=== PATIENT | female | born 1965 | race Caucasian/White ===

== ENCOUNTER 2022-07-29 16:12 | Observation (INO) | payer BC ==
--- OUTSIDE RECORDS SUMMARY | 2022-07-29 16:34 | XMS REPORT | Continuity of Care Document ---
:1965 Author Organization [facility] t Address [address] [place] [address] [address] [place] [address] Care Team Providers Name Role Phone Brandon Ferguson MD Primary Care Physician [phone] MARIANO HANSEN Attending Clinician Unavailable Brandon Ferguson MD Attending Clinician Nesha Osorio Attending Clinician NESHA ESTEBAN Attending Clinician Unavailable Doctor Unassigned, Archer Attending Clinician Unavailable MORAIMA FOY Attending Clinician Unavailable Moraima Foy NP Attending Clinician GALINA RICH Attending Clinician Unavailable Lab, Ang - Db Attending Clinician Unavailable BRANDON FERGUSON Attending Clinician Unavailable Galina Byrd Attending Clinician Tonja Gross MD Attending Clinician TONJA GROSS Attending Clinician Unavailable LINDSEY DOMINGUEZ Attending Clinician Unavailable Unknown, Attending Attending Clinician Unavailable Mariano Hansen MD Attending Clinician COSTA OTT Attending Clinician Unavailable Only, Ang Db Test Attending Clinician Unavailable Dutch BOWENP, Costa Attending Clinician JUSTO ESPARZA Attending Clinician Unavailable Andrei PINTO, Justo Attending Clinician Mitra PHOTOGRAPH MOUNTER, Miguelina Attending Clinician Kwame Rdz MD Attending Clinician KWAME RDZ Attending Clinician Unavailable Leslie Perales PA-C Attending Clinician Pedro PHOTOGRAPH MOUNTER, Ghada Attending Clinician BA ARTIS Attending Clinician Unavailable Lab, Adc Fam Pob I Attending Clinician Unavailable Brandon Chowdhury MD Attending Clinician Jono Sheriff Attending Clinician MORAIMA FOY Admitting Clinician Unavailable MARIANO HANSEN Admitting Clinician Unavailable Payers Payer Name Policy Type Policy Number Effective Date Expiration Date Ebonie jones [facility] [employer] [id number] 2016 00:00:00 [facility] Problems Condition Condition Condition Status Onset Resolution Last Treating Co mments Source Name Details Category Date Date Treatment Clinician Date Colorectal Colorectal Disease Active U bob cancer, cancer, 5-05 ity of stage I stage I 00:00: [place] [facility] Tubulovill Tubulovill Disease Active U bob ous ous 2-21 ity of adenoma [place] large large 00 Medical intestine intestine Bran ch Cervical Cervical Disease Active Unive rs radiculopa radiculopa 2-21 it y of thy thy 00:00: [place] [facility] Branch Gluteal Gluteal Disease Active Univers pain pain 2-21 ity of 00:00: [place] [facility] Colon Colon Disease Active Univers cancer cancer 2-06 ity of 00:00: [place] [facility] Branch Nonobstruc Nonobstruc Disease Active 2021-03 U bob tive tive 0-03 ity of atheroscle atheroscle 00:[place] rosis of rosis of 00 Medica l coronary coronary Branch artery artery Nonrheumat Nonrheumat Disease Active 2021-03 U nivers ic aortic ic aortic 0-03 ity of valve valve 00:00: [place] insufficie insufficie 00 Me dical ncy ncy Branch Family Family Disease Active 2017-03 Univers history of history of 0-09 [place] y of early CAD early CAD [place] Chest pain Chest pain Disease Active 2017-03 U nivers 0-08 ity of 00:00: [place] [facility] Obesity Obesity Disease Active 2017-03 Univers (BMI (BMI 0-08 ity of 30-39.9) 30-39.9) 00:00: [place] [facility] Gastroesop Gastroesop Disease Active U nivers hageal hageal 6-07 ity of reflux reflux 00:00: [place] disease disease 00 Medical without without Branch esophagiti esophagiti s s Left ankle Left ankle Disease Active U nivers pain pain 1-29 ity of 00:00: [place] [facility] Essential Essential Disease Active Uni vers hypertensi hypertensi 1-27 it y of on on 00:00: Medical Branch Depression Depression Disease Active U nivers 1-15 ity of 00:00: Medical Branch Allergies, Adverse Reactions, Alerts Allergy Allergy Status Severity Reaction(s) Onset Inactive Treating Comm ents Source Name Type Date Date Clinician Indometh Propensi Active Method i acin ty to 7-02 st adverse 00:00: [facility] reaction 00 l s to drug Indometh Propensi Active Rash Univer s acin ty to 1-15 ity of Sodium adverse 00:00: [place] reaction 00 Medical s Branch INDOMETH DRUG Active Rash Univers ACIN INGREDI 1-15 ity of SODIUM 00:00: [place] [address] [facility] Branch Social History Social Habit Start Date Stop Date Quantity Comments Source Gender identity [facility] Sexual orientation [facility] Exposure to 2022-07-11 2022-07-21 Not sure [facility] SARS-CoV-2 (event) 00:00:00 10:54:00 [facility] Alcohol intake 2022-07-21 2022-07-21 .29 /d University of 00:00:00 00:00:00 [facility] Tobacco use and 2021-12-01 2021-12-01 Smokeless Universit y of exposure 00:00:00 00:00:00 tobacco non-user [facility] History of Social 2018-11-05 2018-11-[address] function 00:00:00 00:00:00 [facility] Sex Assigned At [birth year] [facility] Smoking Status Start Date Stop Date Source Never smoked tobacco [facility] Medications Ordered Filled Start Stop Current Ordering Indication Dosage Frequency Signature Comments Components Source Medication Medication Date Date Medication? Clinician (SIG) Name Name diltiazem Yes [id number] 180mg Take 1 U nivers 180 mg 24 5-10 capsule by ity of hr capsule 00:00: mouth in [facility] the Medical morning Branch and 1 capsule in the evening. ATORVASTATI Yes [id number] 80mg TAKE 1 Univers N 80 mg 3-09 TABLET BY ity of tablet 00:00: MOUTH AT [address] ATORVASTATI Yes [id number] 80mg TAKE 1 Univers N 80 mg 3-09 TABLET BY ity of tablet 00:00: MOUTH AT [address] ATORVASTATI Yes [id number] 80mg TAKE 1 Univers N 80 mg 3-09 TABLET BY ity of tablet 00:00: MOUTH AT [address] ATORVASTATI Yes [id number] 80mg TAKE 1 Univers N 80 mg 3-09 TABLET BY ity of tablet 00:00: MOUTH AT [address] ATORVASTATI Yes [id number] 80mg TAKE 1 Univers N 80 mg 3-09 TABLET BY ity of tablet 00:00: MOUTH AT [address] HYDROcodone 2022- No 1{tbl} 1 tablet, Univers -acetaminop 05-12 Oral, ity of hen (NORCO) 05:00: 05:34 [place]CE[place] 1 [place] 10-325 [place] 00 :00 dose, On Medica l tablet 1 [facility] Branch tablet 05/11/22 at 2300, Routine dexamethaso 2022- No 10mg 10 mg, Uni vers ne 05-12 Intramuscu ity of (DECADRON 05:00: 05:00 lar, ONCE, [place] PHOSPHATE) 00 :00 1 dose, On Med ical injection Emi Branch 10 mg 05/11/22 at 2300, Routine ketorolac 2022-0 2022- No 30mg 30 mg, Unive rs (TORADOL) 05-12 Slow IV ity of injection 05:00: 05:33 Push, [place] 30 mg 00 :00 ONCE, 1 Medical dose, On Branch Emi 05/11/22 at 2300, Routine diazePAM 2022-0 2022- No 5mg 5 mg, Univers (VALIUM) 05-12 Oral, ity of tablet 5 mg 04:00: 05:34 ONCE, 1 [place] 00 :[place] dose, On Medical Emi Branch 05/11/22 at 2200, SUNIL ketorolac 3-0 Yes [id number] 10mg Take 1 Un mehrdad 10 mg 2-24 tablet by ity of tablet 00:00: mouth [place] 00 every 6 Medical (six) Branch hours as needed for Pain (scale 4-6) or Pain (scale 1-3). gabapentin 2023-0 Yes [id number] 300mg Take 1 Univers 300 mg 2-24 capsule by ity of capsule 00:00: mouth 3 00 (three) Medical times Branch daily as needed for Pain (scale 4-6) or Pain (scale 7-10). ketorolac 2023-0 Yes [id number] 10mg Take 1 Un mehrdad 10 mg 2-24 tablet by ity of tablet 00:00: mouth [place] 00 every 6 Medical (six) Branch hours as needed for Pain (scale 4-6) or Pain (scale 1-3). gabapentin 2023-0 Yes [id number] 300mg Take 1 Univers 300 mg 2-24 capsule by ity of capsule 00:00: mouth 3 [place] 00 (three) Medical times Branch daily as needed for Pain (scale 4-6) or Pain (scale 7-10). ketorolac 2023-0 Yes [id number] 10mg Take 1 Un mehrdad 10 mg 2-24 tablet by ity of tablet 00:00: mouth [place] 00 every 6 Medical (six) Branch hours as needed for Pain (scale 4-6) or Pain (scale 1-3). gabapentin 2023-0 Yes [id number] 300mg Take 1 Univers 300 mg 2-24 capsule by ity of capsule 00:00: mouth 3 [place] 00 (three) Medical times Branch daily as needed for Pain (scale 4-6) or Pain (scale 7-10). ketorolac 2023-0 Yes [id number] 10mg Take 1 Un mehrdad 10 mg 2-24 tablet by ity of tablet 00:00: mouth [place] 00 every 6 Medical (six) Branch hours as needed for Pain (scale 4-6) or Pain (scale 1-3). gabapentin 2022-0 Yes [id number] 300mg Take 1 Univers 300 mg 2-24 capsule by ity of capsule 00:00: mouth 3 [place] 00 (three) Medical times Branch daily as needed for Pain (scale 4-6) or Pain (scale 7-10). ketorolac 2023-0 Yes [id number] 10mg Take 1 Un mehrdad 10 mg 2-24 tablet by ity of tablet 00:00: mouth [place] 00 every 6 Medical (six) Branch hours as needed for Pain (scale 4-6) or Pain (scale 1-3). gabapentin 3-0 Yes [id number] 300mg Take 1 Univers 300 mg 2-24 capsule by ity of capsule 00:00: mouth 3 [place] 00 (three) Medical times Branch daily as needed for Pain (scale 4-6) or Pain (scale 7-10). ketorolac 2023-0 Yes [id number] 10mg Take 1 Un mehrdad 10 mg 2-24 tablet by ity of tablet 00:00: mouth [place] 00 every 6 Medical (six) Branch hours as needed for Pain (scale 4-6) or Pain (scale 1-3). gabapentin 2023-0 Yes [id number] 300mg Take 1 Univers 300 mg 2-24 capsule by ity of capsule 00:00: mouth 3 [place] 00 (three) Medical times Branch daily as needed for Pain (scale 4-6) or Pain (scale 7-10). ketorolac 2023-0 Yes [id number] 10mg Take 1 Un mehrdad 10 mg 2-24 tablet by ity of tablet 00:00: mouth [place] 00 every 6 Medical (six) Branch hours as needed for Pain (scale 4-6) or Pain (scale 1-3). gabapentin 2023-0 Yes [id number] 300mg Take 1 Univers 300 mg 2-24 capsule by ity of capsule 00:00: mouth 3 (three) Medical times Branch daily as needed for Pain (scale 4-6) or Pain (scale 7-10). ketorolac 2022-0 Yes [id number] 10mg Take 1 Un mehrdad 10 mg 2-24 tablet by ity of tablet 00:00: mouth 00 every 6 Medical (six) Branch hours as needed for Pain (scale 4-6) or Pain (scale 1-3). gabapentin 2022-0 Yes [id number] 300mg Take 1 Univers 300 mg 2-24 capsule by ity of capsule 00:00: mouth (three) Medical times Branch daily as needed for Pain (scale 4-6) or Pain (scale 7-10). ketorolac 2022-0 Yes [id number] 10mg Take 1 Un mehrdad 10 mg 2-24 tablet by ity of tablet 00:00: mouth 00 every 6 Medical (six) Branch hours as needed for Pain (scale 4-6) or Pain (scale 1-3). gabapentin 2022-0 Yes [id number] 300mg Take 1 Univers 300 mg 2-24 capsule by ity of capsule 00:00: mouth (three) Medical times Branch daily as needed for Pain (scale 4-6) or Pain (scale 7-10). ketorolac 2022-0 Yes [id number] 10mg Take 1 Un mehrdad 10 mg 2-24 tablet by ity of tablet 00:00: mouth 00 every 6 Medical (six) Branch hours as needed for Pain (scale 4-6) or Pain (scale 1-3). gabapentin 2022-0 Yes [id number] 300mg Take 1 Univers 300 mg 2-24 capsule by ity of capsule 00:00: mouth (three) Medical times Branch daily as needed for Pain (scale 4-6) or Pain (scale 7-10). tiZANidine 2022-0 Yes [id number] 2mg Take 1 U nivers 2 mg 2-22 capsule by ity of capsule 00:00: mouth 3 (three) Medical times Branch daily as needed (neck pain). methylPREDN 202-0 Yes [id number] Take by Univers ISolone 2-22 mouth ity of (MEDROL, 00:00: SEE-INSTRU Jamie as LETY,) 4 mg 00 CTIONS. Medica l tablets follow Branch package directions tiZANidine 2023-0 Yes [id number] 2mg Take 1 U nivers 2 mg 2-22 capsule by ity of capsule 00:00: mouth 3 [place] 00 (three) Medical times Branch daily as needed (neck pain). methylPREDN 2023-0 Yes [id number] Take by Univers ISolone 2-22 mouth ity of (MEDROL, 00:00: SEE-INSTRU [place] as LETY,) 4 mg 00 CTIONS. Medica l tablets follow Branch package directions tiZANidine 2023-0 Yes [id number] 2mg Take 1 U nivers 2 mg 2-22 capsule by ity of capsule 00:00: mouth 3 (three) Medical times Branch daily as needed (neck pain). methylPREDN 2023-0 Yes [id number] Take by Univers ISolone 2-22 mouth ity of (MEDROL, 00:00: SEE-INSTRU [place] as LETY,) 4 mg 00 CTIONS. Medica l tablets follow Branch package directions tiZANidine 2023-0 Yes [id number] 2mg Take 1 U nivers 2 mg 2-22 capsule by ity of capsule 00:00: mouth 3 (three) Medical times Branch daily as needed (neck pain). methylPREDN 2023-0 Yes [id number] Take by Univers ISolone 2-22 mouth ity of (MEDROL, 00:00: SEE-INSTRU [place] LETY,) 4 mg 00 CTIONS. Medica l tablets follow Branch package directions tiZANidine 2023-0 Yes [id number] 2mg Take 1 U nivers 2 mg 2-22 capsule by ity of capsule 00:00: mouth 3 [place] (three) Medical times Branch daily as needed (neck pain). methylPREDN 2023-0 Yes [id number] Take by Univers ISolone 2-22 mouth ity of (MEDROL, 00:00: SEE-INSTRU [place] as LETY,) 4 mg 00 CTIONS. Medica l tablets follow Branch package directions tiZANidine 2023-0 Yes [id number] 2mg Take 1 U nivers 2 mg 2-22 capsule by ity of capsule 00:00: mouth 3 (three) Medical times Branch daily as needed (neck pain). methylPREDN 2023-0 Yes [id number] Take by Univers ISolone 2-22 mouth ity of (MEDROL, 00:00: SEE-INSTRU [place] as LETY,) 4 mg 00 CTIONS. Medica l tablets follow Branch package directions tiZANidine 2023-0 Yes [id number] 2mg Take 1 U nivers 2 mg 2-22 capsule by ity of capsule 00:00: mouth 3 [place] (three) Medical times Branch daily as needed (neck pain). methylPREDN 2023-0 Yes [id number] Take by Univers ISolone 2-22 mouth ity of (MEDROL, 00:00: SEE-INSTRU [place] as LETY,) 4 mg 00 CTIONS. Medica l tablets follow Branch package directions tiZANidine 2023-0 Yes [id number] 2mg Take 1 U nivers 2 mg 2-22 capsule by ity of capsule 00:00: mouth 3 (three) Medical times Branch daily as needed (neck pain). methylPREDN 2023-0 Yes [id number] Take by Univers ISolone 2-22 mouth ity of (MEDROL, 00:00: SEE-INSTRU [place] as LETY,) 4 mg 00 CTIONS. Medica l tablets follow Branch package directions tiZANidine 2023-0 Yes [id number] 2mg Take 1 U nivers 2 mg 2-22 capsule by ity of capsule 00:00: mouth 3 (three) Medical times Branch daily as needed (neck pain). methylPREDN 2023-0 Yes [id number] Take by Univers ISolone 2-22 mouth ity of (MEDROL, 00:00: SEE-INSTRU [place] as LETY,) 4 mg 00 CTIONS. Medica l tablets follow Branch package directions tiZANidine 2023-0 Yes [id number] 2mg Take 1 U nivers 2 mg 2-22 capsule by ity of capsule 00:00: mouth 3 (three) Medical times Branch daily as needed (neck pain). methylPREDN 2023-0 Yes [id number] Take by Univers ISolone 2-22 mouth ity of (MEDROL, 00:00: SEE-INSTRU [place] as LETY,) 4 mg 00 CTIONS. Medica l tablets follow Branch package directions tiZANidine 2023-0 Yes [id number] 2mg Take 1 U nivers 2 mg 2-22 capsule by ity of capsule 00:00: mouth 3 (three) Medical times Branch daily as needed (neck pain). methylPREDN 2023-0 Yes [id number] Take by Univers ISolone 2-22 mouth ity of (MEDROL, 00:00: SEE-INSTRU [place] as LETY,) 4 mg 00 CTIONS. Medica l tablets follow Branch package directions tiZANidine 2023-0 Yes [id number] 2mg Take 1 U nivers 2 mg 2-22 capsule by ity of capsule 00:00: mouth 3 (three) Medical times Branch daily as needed (neck pain). methylPREDN 2023-0 Yes [id number] Take by Univers ISolone 2-22 mouth ity of (MEDROL, 00:00: SEE-INSTRU [place] as LETY,) 4 mg 00 CTIONS. Medica l tablets follow Branch package directions tiZANidine 2023-0 Yes [id number] 2mg Take 1 U nivers 2 mg 2-22 capsule by ity of capsule 00:00: mouth 3 (three) Medical times Branch daily as needed (neck pain). methylPREDN 2023-0 Yes [id number] Take by Univers ISolone 2-22 mouth ity of (MEDROL, 00:00: SEE-INSTRU [place] as LETY,) 4 mg 00 CTIONS. Medica l tablets follow Branch package directions tiZANidine 2023-0 Yes [id number] 2mg Take 1 U nivers 2 mg 2-22 capsule by ity of capsule 00:00: mouth 3 (three) Medical times Branch daily as needed (neck pain). methylPREDN 2023-0 Yes [id number] Take by Univers ISolone 2-22 mouth ity of (MEDROL, 00:00: SEE-INSTRU [place] LETY,) 4 mg 00 CTIONS. Medica l tablets follow Branch package directions tiZANidine 2023-0 Yes [id number] 2mg Take 1 U nivers 2 mg 2-22 capsule by ity of capsule 00:00: mouth 3 (three) Medical times Branch daily as needed (neck pain). methylPREDN 2023-0 Yes [id number] Take by Univers ISolone 2-22 mouth ity of (MEDROL, 00:00: SEE-INSTRU [place] LETY,) 4 mg 00 CTIONS. Medica l tablets follow Branch package directions tiZANidine 3-0 Yes [id number] 2mg Take 1 U nivers 2 mg 2-21 capsule by ity of capsule 00:00: mouth 3 [place] 00 (three) Medical times Branch daily as needed (neck pain). tiZANidine 3-0 Yes [id number] 2mg Take 1 U nivers 2 mg 2-21 capsule by ity of capsule 00:00: mouth 3 [place] 00 (three) Medical times Branch daily as needed (neck pain). tiZANidine 3-0 2023- No [id number] 2mg Take 1 Univers 2 mg 2-21 02-22 capsule by ity of capsule 00:00: 00:00 mouth 3 [place] 00 :00 (three) Medical times Branch daily as needed (neck pain). tiZANidine 3-0 2023- No [id number] 2mg Take 1 Univers 2 mg 2-21 02-22 capsule by ity of capsule 00:00: 00:00 mouth 3 [place] 00 :00 (three) Medical times Branch daily as needed (neck pain). famotidine 3-0 Yes 20mg Take 20 mg U nivers 20 mg 2-20 by mouth ity of tablet 00:00: at [place] [address] bedtime. Medical Branch famotidine 2023-0 Yes 20mg Take 20 mg U nivers 20 mg 2-20 by mouth ity of tablet 00:00: at [place] [address] bedtime. Medical Branch famotidine 2023-0 Yes 20mg Take 20 mg U nivers 20 mg 2-20 by mouth ity of tablet 00:00: at [place] [address] bedtime. Medical Branch famotidine 2023-0 Yes 20mg Take 20 mg U nivers 20 mg 2-20 by mouth ity of tablet 00:00: at [place] [address] bedtime. Medical Branch famotidine 2023-0 Yes 20mg Take 1 Unive rs 20 mg 2-20 tablet by ity of tablet 00:00: mouth at [place] [address] bedtime. Medical Branch famotidine 2023-0 Yes 20mg Take 1 Unive rs 20 mg 2-20 tablet by ity of tablet 00:00: mouth at [place] [address] bedtime. Medical Branch famotidine 2023-0 Yes 20mg Take 1 Unive rs 20 mg 2-20 tablet by ity of tablet 00:00: mouth at [place] 00 bedtime. Medical Branch famotidine 0 Yes 20mg Take 1 Unive rs 20 mg 2-20 tablet by ity of tablet 00:00: mouth at [place] [address] bedtime. Medical Branch atorvastati 0 Yes [id number] 80mg Take 1 Univers n 80 mg 1-06 tablet by ity of tablet 00:00: mouth at [place] [address] bedtime. Medical Branch atorvastati 0 Yes [id number] 80mg Take 1 Univers n 80 mg 1-06 tablet by ity of tablet 00:00: mouth at [place] bedtime. Medical Branch atorvastati 0 Yes [id number] 80mg Take 1 Univers n 80 mg 1-06 tablet by ity of tablet 00:00: mouth at [place] bedtime. Medical Branch atorvastati Yes [id number] 80mg Take 1 Univers n 80 mg 1-06 tablet by ity of tablet 00:00: mouth at [place] [address] bedtime. Medical Branch atorvastati 0 Yes [id number] 80mg Take 1 Univers n 80 mg 1-06 tablet by ity of tablet 00:00: mouth at [place] [address] bedtime. Medical Branch atorvastati Yes [id number] 80mg Take 1 Univers n 80 mg 1-06 tablet by ity of tablet 00:00: mouth at [place] [address] bedtime. Medical Branch atorvastati Yes [id number] 80mg Take 1 Univers n 80 mg 1-06 tablet by ity of tablet 00:00: mouth at [place] [address] bedtime. Medical Branch atorvastati 0 Yes [id number] 80mg Take 1 Univers n 80 mg 1-06 tablet by ity of tablet 00:00: mouth at [place] [address] bedtime. Medical Branch atorvastati 0 Yes [id number] 80mg Take 1 Univers n 80 mg 1-06 tablet by ity of tablet 00:00: mouth at [place] [address] bedtime. Medical Branch atorvastati 0 Yes [id number] 80mg Take 1 Univers n 80 mg 1-06 tablet by ity of tablet 00:00: mouth at [place] [address] bedtime. Medical Branch atorvastati 0 Yes [id number] 80mg Take 1 Univers n 80 mg 1-06 tablet by ity of tablet 00:00: mouth at [place] 00 bedtime. Medical Branch atorvastati 2022-0 Yes [id number] 80mg Take 1 Univers n 80 mg 1-06 tablet by ity of tablet 00:00: mouth at [place] [address] bedtime. Medical Branch atorvastati 2022-0 Yes [id number] 80mg Take 1 Univers n 80 mg 1-06 tablet by ity of tablet 00:00: mouth at [place] [address] bedtime. Medical Branch atorvastati 2022-0 Yes [id number] 80mg Take 1 Univers n 80 mg 1-06 tablet by ity of tablet 00:00: mouth at [place] [address] bedtime. Medical Branch atorvastati 2022-0 Yes [id number] 80mg Take 1 Univers n 80 mg 1-06 tablet by ity of tablet 00:00: mouth at [place] [address] bedtime. Medical Branch atorvastati 2022-0 Yes [id number] 80mg Take 1 Univers n 80 mg 1-06 tablet by ity of tablet 00:00: mouth at [place] [address] bedtime. Medical Branch atorvastati 2022-0 Yes [id number] 80mg Take 1 Univers n 80 mg 1-06 tablet by ity of tablet 00:00: mouth at [place] [address] bedtime. Medical Branch atorvastati Yes [id number] 80mg Take 1 Univers n 80 mg 1-06 tablet by ity of tablet 00:00: mouth at [place] [address] bedtime. Medical Branch atorvastati 0 Yes [id number] 80mg Take 1 Univers n 80 mg 1-06 tablet by ity of tablet 00:00: mouth at [place] [address] bedtime. Medical Branch atorvastati 2022-0 Yes [id number] 80mg Take 1 Univers n 80 mg 1-06 tablet by ity of tablet 00:00: mouth at [place] [address] bedtime. Medical Branch atorvastati 0 2022- No [id number] 80mg Take 1 Univers n 80 mg 1-06 03-09 tablet by ity of tablet 00:00: 00:00 mouth at [place] 00 :00 bedtime. Medical Branch DULOXETINE 2021-03 Yes [id number] 60mg TAKE 1 U nivers 60 mg 2-07 CAPSULE BY ity of capsule 00:00: MOUTH [place] 00 DAILY Medical Branch DULOXETINE 2021-03 Yes [id number] 60mg TAKE 1 U nivers 60 mg 2-07 CAPSULE BY ity of capsule 00:00: MOUTH [place] DAILY Medical Branch DULOXETINE 2021-03 Yes [id number] 60mg TAKE 1 U nivers 60 mg 2-07 CAPSULE BY ity of capsule 00:00: [facility] DAILY Medical Branch DULOXETINE 2021-03 Yes [id number] 60mg TAKE 1 U nivers 60 mg 2-07 CAPSULE BY ity of capsule 00:00: [facility] DAILY Medical Branch DULOXETINE 2021-03 Yes [id number] 60mg TAKE 1 U nivers 60 mg 2-07 CAPSULE BY ity of capsule 00:00: [facility] DAILY Medical Branch DULOXETINE 2021-03 Yes [id number] 60mg TAKE 1 U nivers 60 mg 2-07 CAPSULE BY ity of capsule 00:00: [facility] DAILY Medical Branch DULOXETINE 2021-03 Yes [id number] 60mg TAKE 1 U nivers 60 mg 2-07 CAPSULE BY ity of capsule 00:00: [facility] DAILY Medical Branch DULOXETINE 2021-03 Yes [id number] 60mg TAKE 1 U nivers 60 mg 2-07 CAPSULE BY ity of capsule 00:00: [facility] DAILY Medical Branch DULOXETINE 2021-03 Yes [id number] 60mg TAKE 1 U nivers 60 mg 2-07 CAPSULE BY ity of capsule 00:00: [facility] DAILY Medical Branch DULOXETINE 2021-03 Yes [id number] 60mg TAKE 1 U nivers 60 mg 2-07 CAPSULE BY ity of capsule 00:00: [facility] DAILY Medical Branch DULOXETINE 2021-03 Yes [id number] 60mg TAKE 1 U nivers 60 mg 2-07 CAPSULE BY ity of capsule 00:00: [facility] DAILY Medical Branch DULOXETINE 2021- Yes [id number] 60mg TAKE 1 U nivers 60 mg 2-07 CAPSULE BY ity of capsule 00:00: [facility] DAILY Medical Branch DULOXETINE 2021- Yes [id number] 60mg TAKE 1 U nivers 60 mg 2-07 CAPSULE BY ity of capsule 00:00: [facility] DAILY Medical Branch DULOXETINE 2021- Yes [id number] 60mg TAKE 1 U nivers 60 mg 2-07 CAPSULE BY ity of capsule 00:00: [facility] DAILY Medical Branch DULOXETINE 2021- Yes [id number] 60mg TAKE 1 U nivers 60 mg 2-07 CAPSULE BY ity of capsule 00:00: [facility] DAILY Medical Branch DULOXETINE 2021-03 Yes [id number] 60mg TAKE 1 U nivers 60 mg 2-07 CAPSULE BY ity of capsule 00:00: MOUTH [place] DAILY Medical Branch DULOXETINE 2021-03 Yes [id number] 60mg TAKE 1 U nivers 60 mg 2-07 CAPSULE BY ity of capsule 00:00: MOUTH [place] DAILY Medical Branch DULOXETINE 2021-03 Yes [id number] 60mg TAKE 1 U nivers 60 mg 2-07 CAPSULE BY ity of capsule 00:00: MOUTH [place] DAILY Medical Branch DULOXETINE 2021-03 Yes [id number] 60mg TAKE 1 U nivers 60 mg 2-07 CAPSULE BY ity of capsule 00:00: MOUTH [place] DAILY Medical Branch DULOXETINE 2021-03 Yes [id number] 60mg TAKE 1 U nivers 60 mg 2-07 CAPSULE BY ity of capsule 00:00: MOUTH [place] DAILY Medical Branch DULOXETINE 2021-03 Yes [id number] 60mg TAKE 1 U nivers 60 mg 2-07 CAPSULE BY ity of capsule 00:00: [facility] DAILY Medical Branch DULOXETINE 2021-03 Yes [id number] 60mg TAKE 1 U nivers 60 mg 2-07 CAPSULE BY ity of capsule 00:00: MOUTH [place] DAILY Medical Branch DULOXETINE 2021-03 Yes [id number] 60mg TAKE 1 U nivers 60 mg 2-07 CAPSULE BY ity of capsule 00:00: [facility] DAILY Medical Branch DULOXETINE 2021-03 Yes [id number] 60mg TAKE 1 U nivers 60 mg 2-07 CAPSULE BY ity of capsule 00:00: [facility] DAILY Medical Branch DULOXETINE 2021- Yes [id number] 60mg TAKE 1 [facility] nivers 60 mg 2-07 CAPSULE BY ity of capsule 00:00: [facility] DAILY Medical Branch DULOXETINE 2021-03 Yes [id number] 60mg TAKE 1 [facility] nivers 60 mg 2-07 CAPSULE BY ity of capsule 00:00: MOUTH [place] DAILY Medical Branch DULOXETINE 2021-03 Yes [id number] 60mg TAKE 1 [facility] nivers 60 mg 2-07 CAPSULE BY ity of capsule 00:00: [facility] DAILY Medical Branch diltiazem 2-0 Yes [id number] 180mg Take 1 [facility] nivers 180 mg 24 9-29 capsule by ity of hr capsule 00:00: mouth in [place] 00 the Medical morning Branch and 1 capsule in the evening. atorvastati 2021-0 Yes [id number] 80mg Take 1 [facility] 80 mg 9-29 tablet by ity of tablet 00:00: mouth at [place] 00 bedtime. Medical Branch diltiazem 2021-0 Yes [id number] 180mg Take 1 [facility] 180 mg 24 9-29 capsule by ity of hr capsule 00:00: mouth in [place] 00 the Medical morning Branch and 1 capsule in the evening. atorvastati 2021-0 Yes [id number] 80mg Take 1 [facility] n 80 mg 9-29 tablet by ity of tablet 00:00: mouth at [place] 00 bedtime. Medical Branch diltiazem 0 Yes [id number] 180mg Take 1 [facility] 180 mg 24 9-29 capsule by ity of hr capsule 00:00: mouth in [place] 00 the Medical morning Branch and 1 capsule in the evening. atorvastati 0 Yes [id number] 80mg Take 1 [facility] n 80 mg 9-29 tablet by ity of tablet 00:00: mouth at [place] 00 bedtime. Medical Branch diltiazem 0 Yes [id number] 180mg Take 1 [facility] 180 mg 24 9-29 capsule by ity of hr capsule 00:00: mouth in [place] 00 the Medical morning Branch and 1 capsule in the evening. atorvastati 0 Yes [id number] 80mg Take 1 [facility] n 80 mg 9-29 tablet by ity of tablet 00:00: mouth at [place] 00 bedtime. Medical Branch diltiazem 2021-0 Yes [id number] 180mg Take 1 [facility] 180 mg 24 9-29 capsule by ity of hr capsule 00:00: mouth in [place] 00 the Medical morning Branch and 1 capsule in the evening. atorvastati 2021-0 Yes [id number] 80mg Take 1 [facility] n 80 mg 9-29 tablet by ity of tablet 00:00: mouth at [place] 00 bedtime. Medical Branch diltiazem 2021-0 Yes [id number] 180mg Take 1 [facility] 180 mg 24 9-29 capsule by ity of hr capsule 00:00: mouth in [place] 00 the Medical morning Branch and 1 capsule in the evening. atorvastati 2021-0 Yes [id number] 80mg Take 1 [facility] n 80 mg 9-29 tablet by ity of tablet 00:00: mouth at [place] 00 bedtime. Medical Branch diltiazem 2021-0 Yes [id number] 180mg Take 1 [facility] 180 mg 24 9-29 capsule by ity of hr capsule 00:00: mouth in [place] 00 the Medical morning Branch and 1 capsule in the evening. atorvastati 2021-0 Yes [id number] 80mg Take 1 [facility] 80 mg 9-29 tablet by ity of tablet 00:00: mouth at [place] 00 bedtime. Medical Branch diltiazem 2021-0 Yes [id number] 180mg Take 1 [facility] 180 mg 24 9-29 capsule by ity of hr capsule 00:00: mouth in [place] 00 the Medical morning Branch and 1 capsule in the evening. atorvastati 2021-0 Yes [id number] 80mg Take 1 [facility] n 80 mg 9-29 tablet by ity of tablet 00:00: mouth at [place] 00 bedtime. Medical Branch diltiazem 2021-0 Yes [id number] 180mg Take 1 [facility] 180 mg 24 9-29 capsule by ity of hr capsule 00:00: mouth in [place] 00 the Medical morning Branch and 1 capsule in the evening. diltiazem 2021-0 Yes [id number] 180mg Take 1 [facility] 180 mg 24 9-29 capsule by ity of hr capsule 00:00: mouth in [place] 00 the Medical morning Branch and 1 capsule in the evening. diltiazem 2021-0 Yes [id number] 180mg Take 1 [facility] 180 mg 24 9-29 capsule by ity of hr capsule 00:00: mouth in [place] 00 the Medical morning Branch and 1 capsule in the evening. diltiazem 2021-0 Yes [id number] 180mg Take 1 [facility] 180 mg 24 9-29 capsule by it[facility] of hr capsule 00:00: mouth in [place] 00 the Medical morning Branch and 1 capsule in the evening. diltiazem 2021-0 Yes [id number] 180mg Take 1 [facility] 180 mg 24 9-29 capsule by ity of hr capsule 00:00: mouth in [place] 00 the Medical morning Branch and 1 capsule in the evening. diltiazem 2021-0 Yes [id number] 180mg Take 1 [facility] 180 mg 24 9-29 capsule by ity of hr capsule 00:00: mouth in [place] 00 the Medical morning Branch and 1 capsule in the evening. diltiazem 2-0 Yes [id number] 180mg Take 1 [facility] 180 mg 24 9-29 capsule by ity of hr capsule 00:00: mouth in [place] 00 the Medical morning Branch and 1 capsule in the evening. diltiazem 2-0 Yes [id number] 180mg Take 1 [facility] 180 mg 24 9-29 capsule by ity of hr capsule 00:00: mouth in [place] 00 the Medical morning Branch and 1 capsule in the evening. diltiazem 2-0 Yes [id number] 180mg Take 1 [facility] 180 mg 24 9-29 capsule by ity of hr capsule 00:00: mouth in [place] 00 the Medical morning Branch and 1 capsule in the evening. diltiazem 2-0 Yes [id number] 180mg Take 1 [facility] 180 mg 24 9-29 capsule by ity of hr capsule 00:00: mouth in [place] 00 the Medical morning Branch and 1 capsule in the evening. diltiazem 2-0 Yes [id number] 180mg Take 1 [facility] 180 mg 24 9-29 capsule by ity of hr capsule 00:00: mouth in [place] 00 the Medical morning Branch and 1 capsule in the evening. diltiazem 2-0 Yes [id number] 180mg Take 1 [facility] 180 mg 24 9-29 capsule by ity of hr capsule 00:00: mouth in [place] 00 the Medical morning Branch and 1 capsule in the evening. diltiazem 2-0 Yes [id number] 180mg Take 1 [facility] 180 mg 24 9-29 capsule by ity of hr capsule 00:00: mouth in [place] 00 the Medical morning Branch and 1 capsule in the evening. diltiazem 2-0 Yes [id number] 180mg Take 1 [facility] 180 mg 24 9-29 capsule by ity of hr capsule 00:00: mouth in [place] 00 the Medical morning Branch and 1 capsule in the evening. diltiazem 2-0 Yes [id number] 180mg Take 1 [facility] 180 mg 24 9-29 capsule by ity of hr capsule 00:00: mouth in [place] 00 the Medical morning Branch and 1 capsule in the evening. diltiazem 2-0 Yes [id number] 180mg Take 1 [facility] 180 mg 24 9-29 capsule by ity of hr capsule 00:00: mouth in [place] 00 the Medical morning Branch and 1 capsule in the evening. diltiazem 2-0 Yes [id number] 180mg Take 1 [facility] 180 mg 24 9-29 capsule by ity of hr capsule 00:00: mouth in [place] 00 the Medical morning Branch and 1 capsule in the evening. diltiazem 2-0 Yes [id number] 180mg Take 1 [facility] 180 mg 24 9-29 capsule by ity of hr capsule 00:00: mouth in [place] 00 the Medical morning Branch and 1 capsule in the evening. diltiazem 2-0 Yes [id number] 180mg Take 1 [facility] 180 mg 24 9-29 capsule by ity of hr capsule 00:00: mouth in [place] 00 the Medical morning Branch and 1 capsule in the evening. diltiazem 2-0 Yes [id number] 180mg Take 1 [facility] 180 mg 24 9-29 capsule by ity of hr capsule 00:00: mouth in [place] 00 the Medical morning Branch and 1 capsule in the evening. diltiazem 2-0 Yes [id number] 180mg Take 1 [facility] 180 mg 24 9-29 capsule by ity of hr capsule 00:00: mouth in [place] 00 the Medical morning Branch and 1 capsule in the evening. diltiazem 2-0 Yes [id number] 180mg Take 1 [facility] 180 mg 24 9-29 capsule by ity of hr capsule 00:00: mouth in [place] 00 the Medical morning Branch and 1 capsule in the evening. diltiazem 2-0 Yes [id number] 180mg Take 1 [facility] 180 mg 24 9-29 capsule by ity of hr capsule 00:00: mouth in [place] 00 the Medical morning Branch and 1 capsule in the evening. diltiazem 2-0 Yes [id number] 180mg Take 1 [facility] 180 mg 24 9-29 capsule by ity of hr capsule 00:00: mouth in [place] 00 the Medical morning Branch and 1 capsule in the evening. diltiazem 2-0 Yes [id number] 180mg Take 1 [facility] 180 mg 24 9-29 capsule by ity of hr capsule 00:00: mouth in [place] 00 the Medical morning Branch and 1 capsule in the evening. atorvastati Yes [id number] 80mg Take 1 [facility] 80 mg 9-29 tablet by ity of tablet 00:00: mouth at [place] 00 bedtime. Medical Branch diltiazem Yes [id number] 180mg Take 1 [facility]ivers 180 mg 24 9-29 capsule by ity of hr capsule 00:00: mouth in [place] 00 the Medical morning Branch and 1 capsule in the evening. atorvastati 0 Yes [id number] 80mg Take 1 [facility] 80 mg 9-29 tablet by ity of tablet 00:00: mouth at [place] 00 bedtime. Medical Branch diltiazem 3- No [id number] 180mg Take 1 [facility] 180 mg 24 9-29 05-10 capsule by ity of hr capsule 00:00: 00:00 mouth in [place] 00 :00 the Medical morning Branch and 1 capsule in the evening. atorvastati 3- No [id number] 80mg Take 1 [facility] n 80 mg 9-29 01-06 tablet by ity of tablet 00:00: 00:00 mouth at [place] 00 :00 bedtime. Medical Branch BESIVANCE Yes INSTILL 1 [facility] vers 0.6 % drops 8-03 DROP INTO ity of 00:00: RIGHT EYE [place] 00 EVERY 2 Medical HOURS FOR Branch ONE DAY THEN THREE TIMES DAILY BESIVANCE Yes INSTILL 1 [facility] vers 0.6 % drops 8-03 DROP INTO ity of 00:00: RIGHT EYE [place] 00 EVERY 2 Medical HOURS FOR Branch ONE DAY THEN THREE TIMES DAILY BESIVANCE 0 Yes INSTILL 1 [facility] vers 0.6 % drops 8-03 DROP INTO ity of 00:00: RIGHT EYE [place] 00 EVERY 2 Medical HOURS FOR Branch ONE DAY THEN THREE TIMES DAILY BESIVANCE 0 Yes INSTILL 1 [facility] vers 0.6 % drops 8-03 DROP INTO ity of 00:00: RIGHT EYE [place] 00 EVERY 2 Medical HOURS FOR Branch ONE DAY THEN THREE TIMES DAILY BESIVANCE 0 Yes INSTILL 1 [facility] vers 0.6 % drops 8-03 DROP INTO ity of 00:00: RIGHT EYE [place] 00 EVERY 2 Medical HOURS FOR Branch ONE DAY THEN THREE TIMES DAILY BESIVANCE 2022-0 Yes INSTILL 1 [facility] vers 0.6 % drops 8-03 DROP INTO ity of 00:00: RIGHT EYE [place] 00 EVERY 2 Medical HOURS FOR Branch ONE DAY THEN THREE TIMES DAILY BESIVANCE Yes INSTILL 1 [facility] vers 0.6 % drops 8-03 DROP INTO ity of 00:00: RIGHT EYE [place] 00 EVERY 2 Medical HOURS FOR Branch ONE DAY THEN THREE TIMES DAILY BESIVANCE Yes INSTILL 1 [facility] vers 0.6 % drops 8-03 DROP INTO ity of 00:00: RIGHT EYE [place] 00 EVERY 2 Medical HOURS FOR Branch ONE DAY THEN THREE TIMES DAILY BESIVANCE 0 Yes INSTILL 1 [facility] vers 0.6 % drops 8-03 DROP INTO ity of 00:00: RIGHT EYE [place] 00 EVERY 2 Medical HOURS FOR Branch ONE DAY THEN THREE TIMES DAILY BESIVANCE Yes INSTILL 1 [facility] vers 0.6 % drops 8-03 DROP INTO ity of 00:00: RIGHT EYE [place] 00 EVERY 2 Medical HOURS FOR Branch ONE DAY THEN THREE TIMES DAILY BESIVANCE Yes INSTILL 1 [facility] vers 0.6 % drops 8-03 DROP INTO ity of 00:00: RIGHT EYE [place] 00 EVERY 2 Medical HOURS FOR Branch ONE DAY THEN THREE TIMES DAILY BESIVANCE Yes INSTILL 1 [facility] vers 0.6 % drops 8-03 DROP INTO ity of 00:00: RIGHT EYE [place] 00 EVERY 2 Medical HOURS FOR Branch ONE DAY THEN THREE TIMES DAILY BESIVANCE Yes INSTILL 1 [facility] vers 0.6 % drops 8-03 DROP INTO ity of 00:00: RIGHT EYE [place] 00 EVERY 2 Medical HOURS FOR Branch ONE DAY THEN THREE TIMES DAILY BESIVANCE Yes INSTILL 1 [facility] vers 0.6 % drops 8-03 DROP INTO ity of 00:00: RIGHT EYE [place] 00 EVERY 2 Medical HOURS FOR Branch ONE DAY THEN THREE TIMES DAILY BESIVANCE 0 Yes INSTILL 1 [facility] vers 0.6 % drops 8-03 DROP INTO ity of 00:00: RIGHT EYE [place] 00 EVERY 2 Medical HOURS FOR Branch ONE DAY THEN THREE TIMES DAILY BESIVANCE 0 Yes INSTILL 1 [facility] vers 0.6 % drops 8-03 DROP INTO ity of 00:00: RIGHT EYE [place] 00 EVERY 2 Medical HOURS FOR Branch ONE DAY THEN THREE TIMES DAILY BESIVANCE 0 Yes INSTILL 1 [facility] vers 0.6 % drops 8-03 DROP INTO ity of 00:00: RIGHT EYE [place] 00 EVERY 2 Medical HOURS FOR Branch ONE DAY THEN THREE TIMES DAILY BESIVANCE 0 Yes INSTILL 1 [facility] vers 0.6 % drops 8-03 DROP INTO ity of 00:00: RIGHT EYE [place] 00 EVERY 2 Medical HOURS FOR Branch ONE DAY THEN THREE TIMES DAILY BESIVANCE 2021-0 Yes INSTILL 1 [facility] vers 0.6 % drops 8-03 DROP INTO ity of 00:00: RIGHT EYE [place] 00 EVERY 2 Medical HOURS FOR Branch ONE DAY THEN THREE TIMES DAILY BESIVANCE 0 Yes INSTILL 1 [facility] vers 0.6 % drops 8-03 DROP INTO ity of 00:00: RIGHT EYE [place] 00 EVERY 2 Medical HOURS FOR Branch ONE DAY THEN THREE TIMES DAILY BESIVANCE Yes INSTILL 1 [facility] vers 0.6 % drops 8-03 DROP INTO ity of 00:00: RIGHT EYE [place] 00 EVERY 2 Medical HOURS FOR Branch ONE DAY THEN THREE TIMES DAILY BESIVANCE Yes INSTILL 1 [facility] vers 0.6 % drops 8-03 DROP INTO ity of 00:00: RIGHT EYE [place] 00 EVERY 2 Medical HOURS FOR Branch ONE DAY THEN THREE TIMES DAILY BESIVANCE 0 202- No INSTILL 1 Un mehrdad 0.6 % drops 8-03 02-21 DROP INTO it y of 00:00: 00:00 RIGHT EYE [place] 00 :00 EVERY 2 Medical HOURS FOR Branch ONE DAY THEN THREE TIMES DAILY BESIVANCE 3- No INSTILL 1 Un mehrdad 0.6 % drops 8-03 02-21 DROP INTO it y of 00:00: 00:00 RIGHT EYE [place] 00 :00 EVERY 2 Medical HOURS FOR Branch ONE DAY THEN THREE TIMES DAILY polymyxin B 2021-0 Yes INSTILL 1 U nivers sulf-trimet 8-02 DROP TO ity o f hoprim 00:00: AFFECTED [place] 10,000 00 EYE(S) Medical unit- 1 EVERY 4 Branch mg/mL HOURS FOR ophthalmic 7 DAYS drops polymyxin B 2021-0 Yes INSTILL 1 U nivers sulf-trimet 8-02 DROP TO ity o f hoprim 00:00: AFFECTED [place] 10,000 00 EYE(S) Medical unit- 1 EVERY 4 Branch mg/mL HOURS FOR ophthalmic 7 DAYS drops polymyxin B 2022-0 Yes INSTILL 1 U nivers sulf-trimet 8-02 DROP TO ity o f hoprim 00:00: AFFECTED EYE(S) Medical unit- 1 EVERY 4 Branch mg/mL HOURS FOR ophthalmic 7 DAYS drops polymyxin B 2022-0 Yes INSTILL 1 U nivers sulf-trimet 8-02 DROP TO ity o f hoprim 00:00: AFFECTED EYE(S) Medical unit- 1 EVERY 4 Branch mg/mL HOURS FOR ophthalmic 7 DAYS drops polymyxin B 2022-0 Yes INSTILL 1 U nivers sulf-trimet 8-02 DROP TO ity o f hoprim 00:00: AFFECTED EYE(S) Medical unit- 1 EVERY 4 Branch mg/mL HOURS FOR ophthalmic 7 DAYS drops polymyxin B 2022-0 Yes INSTILL 1 U nivers sulf-trimet 8-02 DROP TO ity o f hoprim 00:00: AFFECTED EYE(S) Medical unit- 1 EVERY 4 Branch mg/mL HOURS FOR ophthalmic 7 DAYS drops polymyxin B 2022-0 Yes INSTILL 1 U nivers sulf-trimet 8-02 DROP TO ity o f hoprim 00:00: AFFECTED EYE(S) Medical unit- 1 EVERY 4 Branch mg/mL HOURS FOR ophthalmic 7 DAYS drops polymyxin B 2022-0 Yes INSTILL 1 [facility] nivers sulf-trimet 8-02 DROP TO ity o f hoprim 00:00: AFFECTED EYE(S) Medical unit- 1 EVERY 4 Branch mg/mL HOURS FOR ophthalmic 7 DAYS drops polymyxin B 2022-0 Yes INSTILL 1 [facility] nivers sulf-trimet 8-02 DROP TO ity o f hoprim 00:00: AFFECTED EYE(S) Medical unit- 1 EVERY 4 Branch mg/mL HOURS FOR ophthalmic 7 DAYS drops polymyxin B 2022-0 Yes INSTILL 1 [facility] nivers sulf-trimet 8-02 DROP TO ity o f hoprim 00:00: AFFECTED EYE(S) Medical unit- 1 EVERY 4 Branch mg/mL HOURS FOR ophthalmic 7 DAYS drops polymyxin B 2022-0 Yes INSTILL 1 [facility] nivers sulf-trimet 8-02 DROP TO ity o f hoprim 00:00: AFFECTED EYE(S) Medical unit- 1 EVERY 4 Branch mg/mL HOURS FOR ophthalmic 7 DAYS drops polymyxin B 2022-0 Yes INSTILL 1 [facility] n[facility] sulf-trimet 8-02 DROP TO ity o f hoprim 00:00: AFFECTED EYE(S) Medical unit- 1 EVERY 4 Branch mg/mL HOURS FOR ophthalmic 7 DAYS drops polymyxin B 2-0 Yes INSTILL 1 [facility] n[facility] sulf-trimet 8-02 DROP TO ity o f hoprim 00:00: AFFECTED EYE(S) Medical unit- 1 EVERY 4 Branch mg/mL HOURS FOR ophthalmic 7 DAYS drops polymyxin B 2-0 Yes INSTILL 1 [facility] nivers sulf-trimet 8-02 DROP TO ity o f hoprim 00:00: AFFECTED EYE(S) Medical unit- 1 EVERY 4 Branch mg/mL HOURS FOR ophthalmic 7 DAYS drops polymyxin B 2-0 Yes INSTILL 1 [facility] nivers sulf-trimet 8-02 DROP TO ity o f hoprim 00:00: AFFECTED EYE(S) Medical unit- 1 EVERY 4 Branch mg/mL HOURS FOR ophthalmic 7 DAYS drops polymyxin B 2-0 Yes INSTILL 1 [facility] n[facility] sulf-trimet 8-02 DROP TO ity o f hoprim 00:00: AFFECTED EYE(S) Medical unit- 1 EVERY 4 Branch mg/mL HOURS FOR ophthalmic 7 DAYS drops polymyxin B 2022-0 Yes INSTILL 1 [facility] n[facility] sulf-trimet 8-02 DROP TO ity o f hoprim 00:00: AFFECTED EYE(S) Medical unit- 1 EVERY 4 Branch mg/mL HOURS FOR ophthalmic 7 DAYS drops polymyxin B 2022-0 Yes INSTILL 1 [facility] nivers sulf-trimet 8-02 DROP TO ity o f hoprim 00:00: AFFECTED EYE(S) Medical unit- 1 EVERY 4 Branch mg/mL HOURS FOR ophthalmic 7 DAYS drops polymyxin B 2022-0 Yes INSTILL 1 [facility] nivers sulf-trimet 8-02 DROP TO ity o f hoprim 00:00: AFFECTED EYE(S) Medical unit- 1 EVERY 4 Branch mg/mL HOURS FOR ophthalmic 7 DAYS drops polymyxin B 2022-0 Yes INSTILL 1 [facility] n[facility] sulf-trimet 8-02 DROP TO ity o f hoprim 00:00: AFFECTED EYE(S) Medical unit- 1 EVERY 4 Branch mg/mL HOURS FOR ophthalmic 7 DAYS drops polymyxin B 2-0 Yes INSTILL 1 [facility] n[facility] sulf-trimet 8-02 DROP TO ity o f hoprim 00:00: AFFECTED EYE(S) Medical unit- 1 EVERY 4 Branch mg/mL HOURS FOR ophthalmic 7 DAYS drops polymyxin B 2-0 Yes INSTILL 1 [facility] n[facility] sulf-trimet 8-02 DROP TO ity o f hoprim 00:00: AFFECTED EYE(S) Medical unit- 1 EVERY 4 Branch mg/mL HOURS FOR ophthalmic 7 DAYS drops polymyxin B 2021-0 2023- No INSTILL 1 [facility] sulf-trimet 8-02 02-21 DROP TO ity of hoprim 00:00: 00:00 AFFECTED 00 :00 EYE(S) Medical unit- 1 EVERY 4 Branch mg/mL HOURS FOR ophthalmic 7 DAYS drops polymyxin B 2021-0 2023- No INSTILL 1 [facility] sulf-trimet 8-02 02-21 DROP TO ity of hoprim 00:00: 00:00 AFFECTED 00 :00 EYE(S) Medical unit- 1 EVERY 4 Branch mg/mL HOURS FOR ophthalmic 7 DAYS drops DULoxetine 2021-0 Yes [id number] 60mg Take 1 [facility] n[facility] 60 mg 6-29 capsule by ity of capsule 00:00: mouth [place] 00 daily. Medical Branch DULoxetine 2021-0 Yes [id number] 60mg Take 1 [facility] 60 mg 6-29 capsule by ity of capsule 00:00: mouth [place] 00 daily. Medical Branch DULoxetine 2021-0 Yes [id number] 60mg Take 1 [facility] 60 mg 6-29 capsule by ity of capsule 00:00: mouth [place] 00 daily. Medical Branch DULoxetine 2021-0 Yes [id number] 60mg Take 1 [facility] 60 mg 6-29 capsule by ity of capsule 00:00: mouth [place] 00 daily. Medical Branch DULoxetine 2021-0 Yes [id number] 60mg Take 1 [facility] 60 mg 6-29 capsule by it[facility] of capsule 00:00: mouth [place] 00 daily. Medical Branch DULoxetine 2021-0 Yes [id number] 60mg Take 1 [facility] 60 mg 6-29 capsule by ity of capsule 00:00: mouth [place] 00 daily. Medical Branch DULoxetine 2021-0 Yes [id number] 60mg Take 1 [facility] 60 mg 6-29 capsule by ity of capsule 00:00: mouth [place] 00 daily. Medical Branch DULoxetine 2021-0 Yes [id number] 60mg Take 1 [facility] 60 mg 6-29 capsule by ity of capsule 00:00: mouth [place] 00 daily. Medical Branch DULoxetine 2021-0 Yes [id number] 60mg Take 1 [facility] 60 mg 6-29 capsule by it[facility] of capsule 00:00: mouth [place] 00 daily. Medical Branch DULoxetine 2021-0 Yes [id number] 60mg Take 1 [facility] 60 mg 6-29 capsule by ity of capsule 00:00: mouth [place] 00 daily. Medical Branch DULoxetine 2021-0 Yes [id number] 60mg Take 1 [facility] 60 mg 6-29 capsule by ity of capsule 00:00: mouth [place] 00 daily. Medical Branch DULoxetine 2021-0 Yes [id number] 60mg Take 1 [facility] 60 mg 6-29 capsule by ity of capsule 00:00: mouth [place] 00 daily. Medical Branch DULoxetine 0 Yes [id number] 60mg Take 1 [facility] 60 mg 6-29 capsule by ity of capsule 00:00: mouth [place] 00 daily. Medical Branch DULoxetine 2021-0 Yes [id number] 60mg Take 1 [facility] 60 mg 6-29 capsule by ity of capsule 00:00: mouth [place] 00 daily. Medical Branch DULoxetine 2021-0 Yes [id number] 60mg Take 1 [facility] 60 mg 6-29 capsule by ity of capsule 00:00: mouth [place] 00 daily. Medical Branch DULoxetine 0 2021- No [id number] 60mg Take 1 [facility] 60 mg 6-29 12-08 capsule by ity of capsule 00:00: 02:36 mouth [place] 00 :57 daily. Medical Branch diltiazem 2021-0 Yes [id number] 180mg Take 1 [facility] 180 mg 24 2-22 capsule by [facility] of hr capsule 00:00: mouth 2 [place] 00 (two) Medical times Branch daily. atorvastati 0 Yes [id number] 80mg Take 1 [facility] n 80 mg 2-22 tablet by ity of tablet 00:00: mouth at [place] 00 bedtime. Medical Branch diltiazem 0 Yes [id number] 180mg Take 1 [facility] 180 mg 24 2-22 capsule by ity of hr capsule 00:00: mouth 2 [place] 00 (two) Medical times Branch daily. atorvastati 0 Yes [id number] 80mg Take 1 [facility] 80 mg 2-22 tablet by ity of tablet 00:00: mouth at [place] 00 bedtime. Medical Branch diltiazem 0 Yes [id number] 180mg Take 1 [facility] 180 mg 24 2-22 capsule by [facility] of hr capsule 00:00: mouth 2 [place] 00 (two) Medical times Branch daily. atorvastati 0 Yes [id number] 80mg Take 1 [facility] 80 mg 2-22 tablet by it[facility] of tablet 00:00: mouth at [place] 00 bedtime. Medical Branch diltiazem 0 Yes [id number] 180mg Take 1 [facility] 180 mg 24 2-22 capsule by [facility] of hr capsule 00:00: mouth 2 [place] 00 (two) Medical times Branch daily. atorvastati 0 Yes [id number] 80mg Take 1 [facility] 80 mg 2-22 tablet by ity of tablet 00:00: mouth at [place] 00 bedtime. Medical Branch diltiazem 0 Yes [id number] 180mg Take 1 [facility] 180 mg 24 2-22 capsule by [facility] of hr capsule 00:00: mouth 2 [place] 00 (two) Medical times Branch daily. atorvastati 0 Yes [id number] 80mg Take 1 [facility] 80 mg 2-22 tablet by ity of tablet 00:00: mouth at [place] 00 bedtime. Medical Branch diltiazem 0 Yes [id number] 180mg Take 1 [facility] 180 mg 24 2-22 capsule by it[facility] of hr capsule 00:00: mouth 2 [place] 00 (two) Medical times Branch daily. atorvastati 2022-0 Yes [id number] 80mg Take 1 [facility] 80 mg 2-22 tablet by ity of tablet 00:00: mouth at [place] [id number] bedtime. Medical Branch LOSARTAN 2020-03 Yes [id number] TAKE 1 [facility] 100 mg 2-28 TABLET BY ity of tablet 00:00: MOUTH IN [place] 00 THE Medical MORNING Branch LOSARTAN 2020-03 Yes [id number] TAKE 1 [facility] 100 mg 2-28 TABLET BY ity of tablet 00:00: MOUTH IN [place] 00 THE Medical MORNING Branch LOSARTAN 2020-03 Yes [id number] TAKE 1 [facility] 100 mg 2-28 TABLET BY ity of tablet 00:00: MOUTH IN [place] 00 THE Medical MORNING Branch LOSARTAN 2020-03 Yes [id number] TAKE 1 [facility] 100 mg 2-28 TABLET BY ity of tablet 00:00: MOUTH IN [place] 00 THE Medical MORNING Branch LOSARTAN 2020-03 Yes [id number] TAKE 1 [facility] 100 mg 2-28 TABLET BY ity of tablet 00:00: MOUTH IN [place] 00 THE Medical MORNING Branch LOSARTAN 2020-03 Yes [id number] TAKE 1 [facility] 100 mg 2-28 TABLET BY ity of tablet 00:00: MOUTH IN [place] 00 THE Medical MORNING Branch LOSARTAN 2020-03 Yes [id number] TAKE 1 [facility] 100 mg 2-28 TABLET BY ity of tablet 00:00: MOUTH IN [place] 00 THE Medical MORNING Branch LOSARTAN 2020-03 Yes [id number] TAKE 1 [facility] 100 mg 2-28 TABLET BY ity of tablet 00:00: MOUTH IN [place] 00 THE Medical MORNING Branch LOSARTAN 2020-03 Yes [id number] TAKE 1 [facility] 100 mg 2-28 TABLET BY ity of tablet 00:00: MOUTH IN [place] 00 THE Medical MORNING Branch LOSARTAN 2020-03 Yes [id number] TAKE 1 [facility] 100 mg 2-28 TABLET BY ity of tablet 00:00: MOUTH IN [place] 00 THE Medical MORNING Branch LOSARTAN 2020-03 Yes [id number] TAKE 1 [facility] 100 mg 2-28 TABLET BY ity of tablet 00:00: MOUTH IN [place] 00 THE Medical MORNING Branch LOSARTAN 2020-03 Yes [id number] TAKE 1 [facility] 100 mg 2-28 TABLET BY ity of tablet 00:00: MOUTH IN [place] 00 THE Medical MORNING Branch LOSARTAN 2020-03 Yes [id number] TAKE 1 [facility] 100 mg 2-28 TABLET BY ity of tablet 00:00: MOUTH IN [place] 00 THE Medical MORNING Branch LOSARTAN 2020-03 Yes [id number] TAKE 1 [facility] 100 mg 2-28 TABLET BY ity of tablet 00:00: MOUTH IN [place] 00 THE Medical MORNING Branch LOSARTAN 2020- Yes [id number] TAKE 1 [facility] 100 mg 2-28 TABLET BY ity of tablet 00:00: MOUTH IN [place] 00 THE Medical MORNING Branch LOSARTAN 2020- Yes [id number] TAKE 1 [facility] 100 mg 2-28 TABLET BY ity of tablet 00:00: MOUTH IN [place] 00 THE Medical MORNING Branch LOSARTAN 2020- Yes [id number] TAKE 1 [facility] 100 mg 2-28 TABLET BY ity of tablet 00:00: MOUTH IN [place] 00 THE Medical MORNING Branch LOSARTAN 2020-03 Yes [id number] TAKE 1 [facility] 100 mg 2-28 TABLET BY ity of tablet 00:00: MOUTH IN [place] 00 THE Medical MORNING Branch LOSARTAN 2020- Yes [id number] TAKE 1 [facility] 100 mg 2-28 TABLET BY ity of tablet 00:00: MOUTH IN [place] 00 THE Medical MORNING Branch LOSARTAN 2020- Yes [id number] TAKE 1 [facility] 100 mg 2-28 TABLET BY ity of tablet 00:00: MOUTH IN [place] 00 THE Medical MORNING Branch LOSARTAN 2020- Yes [id number] TAKE 1 [facility] 100 mg 2-28 TABLET BY ity of tablet 00:00: MOUTH IN [place] 00 THE Medical MORNING Branch LOSARTAN 2020- Yes [id number] TAKE 1 [facility] 100 mg 2-28 TABLET BY ity of tablet 00:00: MOUTH IN [place] 00 THE Medical MORNING Branch LOSARTAN 2020- Yes [id number] TAKE 1 [facility] 100 mg 2-28 TABLET BY ity of tablet 00:00: MOUTH IN [place] 00 THE Medical MORNING Branch LOSARTAN 2020- Yes [id number] TAKE 1 [facility] 100 mg 2-28 TABLET BY ity of tablet 00:00: MOUTH IN [place] 00 THE Medical MORNING Branch LOSARTAN 2020- Yes [id number] TAKE 1 [facility] 100 mg 2-28 TABLET BY ity of tablet 00:00: MOUTH IN [place] 00 THE Medical MORNING Branch LOSARTAN 2020- Yes [id number] TAKE 1 [facility] 100 mg 2-28 TABLET BY ity of tablet 00:00: MOUTH IN [place] 00 THE Medical MORNING Branch LOSARTAN 2020- Yes [id number] TAKE 1 [facility] 100 mg 2-28 TABLET BY ity of tablet 00:00: MOUTH IN [place] 00 THE Medical MORNING Branch LOSARTAN 2020- Yes [id number] TAKE 1 [facility] 100 mg 2-28 TABLET BY ity of tablet 00:00: MOUTH IN [place] 00 THE Medical MORNING Branch LOSARTAN 2020- Yes [id number] TAKE 1 Uni vers 100 mg 2-28 TABLET BY ity of tablet 00:00: MOUTH IN [place] 00 THE Medical MORNING Branch LOSARTAN 2020- Yes [id number] TAKE 1 Uni vers 100 mg 2-28 TABLET BY ity of tablet 00:00: MOUTH IN [place] 00 THE [facility] MORNING Branch LOSARTAN 2020- Yes [id number] TAKE 1 Uni vers 100 mg 2-28 TABLET BY ity of tablet 00:00: MOUTH IN [place] 00 THE [facility] MORNING Branch LOSARTAN 2020-03 Yes [id number] TAKE 1 Uni vers 100 mg 2-28 TABLET BY ity of tablet 00:00: MOUTH IN [place] 00 THE Medical MORNING Branch LOSARTAN 2020- Yes [id number] TAKE 1 Uni vers 100 mg 2-28 TABLET BY ity of tablet 00:00: MOUTH IN [place] 00 THE Medical MORNING Branch LOSARTAN 2020- Yes [id number] TAKE 1 Uni vers 100 mg 2-28 TABLET BY ity of tablet 00:00: MOUTH IN [place] 00 THE Medical MORNING Branch LOSARTAN 2020-03 Yes [id number] TAKE 1 Uni vers 100 mg 2-28 TABLET BY ity of tablet 00:00: MOUTH IN [place] 00 THE Medical MORNING Branch LOSARTAN 2020- Yes [id number] TAKE 1 Uni vers 100 mg 2-28 TABLET BY ity of tablet 00:00: MOUTH IN [place] 00 THE Medical MORNING Branch LOSARTAN 2020- Yes [id number] TAKE 1 Uni vers 100 mg 2-28 TABLET BY ity of tablet 00:00: MOUTH IN [place] 00 THE Medical MORNING Branch LOSARTAN 2020- Yes [id number] TAKE 1 Uni vers 100 mg 2-28 TABLET BY ity of tablet 00:00: MOUTH IN [place] 00 THE Medical MORNING Branch LOSARTAN 2020- Yes [id number] TAKE 1 Uni vers 100 mg 2-28 TABLET BY ity of tablet 00:00: MOUTH IN [place] 00 THE Medical MORNING Branch LOSARTAN 2020- Yes [id number] TAKE 1 Uni vers 100 mg 2-28 TABLET BY ity of tablet 00:00: MOUTH IN [place] 00 THE Medical MORNING Branch LOSARTAN 2020- Yes [id number] TAKE 1 Uni vers 100 mg 2-28 TABLET BY ity of tablet 00:00: MOUTH IN [place] [address] [facility] MORNING [place] LOSARTAN 2020-03 Yes [id number] TAKE 1 Uni vers 100 mg 2-28 TABLET BY ity of tablet 00:00: MOUTH IN [address] MORNING Branch aspirin 81 2020-0 Yes Univers mg EC 3-21 ity of tablet 00:00: [place] [facility] aspirin 81 2020-0 Yes Univers mg EC 3-21 ity of tablet 00:00: [place] [facility] aspirin 81 2020-0 Yes Univers mg EC 3-21 ity of tablet 00:00: [place] [facility] aspirin 81 2020-0 Yes Univers mg EC 3-21 ity of tablet 00:00: [place] [facility] Branch aspirin 81 2020-0 Yes Univers mg EC 3-21 ity of tablet 00:00: [place] [facility] aspirin 81 2020-0 Yes Univers mg EC 3-21 ity of tablet 00:00: [place] [facility] Branch aspirin 81 2020-0 Yes Univers mg EC 3-21 ity of tablet 00:00: [place] [facility] Branch aspirin 81 2020-0 Yes Univers mg EC 3-21 ity of tablet 00:00: [address] diltiazem 2018- Yes 180mg Q.5D Take 180 Met hodi CD 7-[address] (CardIZEM 11:03: mouth 2 Hospi ta CD) 180 MG 58 (two) l 24 hr times a capsule day. triamcinolo 2018- Yes Q.5D Apply Metho di ne 09-[address] (KENALOG) 11:03: 2 (two) Hospi ta 0.1 % cream 58 times a l day. atorvastati Yes 80mg QD Take 80 mg Methodi n (LIPITOR) [address] 80 MG 11:03: daily. Hospita tablet 58 l DULoxetine Yes 60mg QD Take 60 mg M ethodi (CYMBALTA) [address] 60 MG 11:03: daily. Hospita capsule 58 l losartan Yes 100mg QD Take 100 Meth catracho (COZAAR) 7-[address] 100 MG 11:03: mouth Hospita tablet 58 daily. l nitroglycer 2018- Yes .3mg Place 0.3 M ethodi in 7-[address] (NITROSTAT) 11:03: the tongue Hospita 0.3 MG SL 58 as needed l tablet for chest pain. Immunizations Ordered Filled Immunization Date Status Comments [facility] e Immunization Name Name SARS-COV-2 COVID-19 2021-12-01 Completed Unive rsity of VILMA-SUCROSE 00:00:00 [place] [facility] VACCINE 12 YRS+, Branch BIVALENT 0.3ML, IM, (PFIZER SHEEHAN TOP BOOSTER) Influenza Virus 2021-12-01 Completed Universit y of Vaccine Quad IM, 00:00:00 [place] [facility] Preserv and ABX Branch Free 6 MO-64 YRS SARS-COV-2 COVID-19 2021-12-01 Completed Unive rsity of VILMA-SUCROSE 00:00:00 [place] [facility] VACCINE 12 YRS+, Branch BIVALENT 0.3ML, IM, (PFIZER SHEEHAN TOP BOOSTER) Influenza Virus 2021-12-01 Completed Universit y of Vaccine Quad IM, 00:00:00 [place] [facility] Preserv and ABX Branch Free 6 MO-64 YRS SARS-COV-2 COVID-19 2021-12-01 Completed Unive rsity of VILMA-SUCROSE 00:00:00 [place] [facility] VACCINE 12 YRS+, Branch BIVALENT 0.3ML, IM, (PFIZER SHEEHAN TOP BOOSTER) Influenza Virus 2021-12-01 Completed Universit y of Vaccine Quad IM, 00:00:00 [place] [facility] Preserv and ABX Branch Free 6 MO-64 YRS SARS-COV-2 COVID-19 2021-12-01 Completed Unive rsity of VILMA-SUCROSE 00:00:00 [place] [facility] VACCINE 12 YRS+, Branch BIVALENT 0.3ML, IM, (PFIZER SHEEHAN TOP BOOSTER) Influenza Virus 2021-12-01 Completed Universit y of Vaccine Quad IM, 00:00:00 [place] [facility] Preserv and ABX Branch Free 6 MO-64 YRS SARS-COV-2 COVID-19 2021-12-01 Completed Unive rsity of VILMA-SUCROSE 00:00:00 [place] [facility] VACCINE 12 YRS+, Branch BIVALENT 0.3ML, IM, (PFIZER SHEEHAN TOP BOOSTER) Influenza Virus 2021-12-01 Completed Universit y of Vaccine Quad IM, 00:00:00 [place] [facility] Preserv and ABX Branch Free 6 MO-64 YRS SARS-COV-2 COVID-19 2021-12-01 Completed Unive rsity of VILMA-SUCROSE 00:00:00 [place] [facility] VACCINE 12 YRS+, Branch BIVALENT 0.3ML, IM, (PFIZER SHEEHAN TOP BOOSTER) Influenza Virus 2021-12-01 Completed Universit y of Vaccine Quad IM, 00:00:00 [place] [facility] Preserv and ABX Branch Free 6 MO-64 YRS SARS-COV-2 COVID-19 2021-12-01 Completed Unive rsity of VILMA-SUCROSE 00:00:00 [place] [facility] VACCINE 12 YRS+, Branch BIVALENT 0.3ML, IM, (PFIZER SHEEHAN TOP BOOSTER) Influenza Virus 2021-12-01 Completed Universit y of Vaccine Quad IM, 00:00:00 [place] [facility] Preserv and ABX Branch Free 6 MO-64 YRS SARS-COV-2 COVID-19 2021-12-01 Completed Unive rsity of VILMA-SUCROSE 00:00:00 [place] [facility] VACCINE 12 YRS+, Branch BIVALENT 0.3ML, IM, (PFIZER SHEEHAN TOP BOOSTER) Influenza Virus 2021-12-01 Completed Universit y of Vaccine Quad IM, 00:00:00 [place] [facility] Preserv and ABX Branch Free 6 MO-64 YRS SARS-COV-2 COVID-19 2021-12-01 Completed Unive rsity of VILMA-SUCROSE 00:00:00 [place] [facility] VACCINE 12 YRS+, Branch BIVALENT 0.3ML, IM, (PFIZER SHEEHAN TOP BOOSTER) Influenza Virus 2021-12-01 Completed Universit y of Vaccine Quad IM, 00:00:00 [place] [facility] Preserv and ABX Branch Free 6 MO-64 YRS SARS-COV-2 COVID-19 2021-12-01 Completed Unive rsity of VILMA-SUCROSE 00:00:00 [place] [facility] VACCINE 12 YRS+, Branch BIVALENT 0.3ML, IM, (PFIZER SHEEHAN TOP BOOSTER) Influenza Virus 2021-12-01 Completed Universit y of Vaccine Quad IM, 00:00:00 [place] [facility] Preserv and ABX Branch Free 6 MO-64 YRS SARS-COV-2 COVID-19 2021-12-01 Completed Unive rsity of VILMA-SUCROSE 00:00:00 [place] [facility] VACCINE 12 YRS+, Branch BIVALENT 0.3ML, IM, (PFIZER SHEEHAN TOP BOOSTER) Influenza Virus 2021-12-01 Completed Universit y of Vaccine Quad IM, 00:00:00 [place] [facility] Preserv and ABX Branch Free 6 MO-64 YRS SARS-COV-2 COVID-19 2021-12-01 Completed Unive rsity of VILMA-SUCROSE 00:00:00 [place] [facility] VACCINE 12 YRS+, Branch BIVALENT 0.3ML, IM, (PFIZER SHEEHAN TOP BOOSTER) Influenza Virus 2021-12-01 Completed Universit y of Vaccine Quad IM, 00:00:00 [place] [facility] Preserv and ABX Branch Free 6 MO-64 YRS SARS-COV-2 COVID-19 2021-12-01 Completed Unive rsity of VILMA-SUCROSE 00:00:00 [place] [facility] VACCINE 12 YRS+, Branch BIVALENT 0.3ML, IM, (PFIZER SHEEHAN TOP BOOSTER) Influenza Virus 2021-12-01 Completed Universit y of Vaccine Quad IM, 00:00:00 [place] [facility] Preserv and ABX Branch Free 6 MO-64 YRS SARS-COV-2 COVID-19 2021-12-01 Completed Unive rsity of VILMA-SUCROSE 00:00:00 [place] [facility] VACCINE 12 YRS+, Branch BIVALENT 0.3ML, IM, (PFIZER SHEEHAN TOP BOOSTER) Influenza Virus 2021-12-01 Completed Universit y of Vaccine Quad IM, 00:00:00 [place] [facility] Preserv and ABX Branch Free 6 MO-64 YRS SARS-COV-2 COVID-19 2021-12-01 Completed Unive rsity of VILMA-SUCROSE 00:00:00 [place] [facility] VACCINE 12 YRS+, Branch BIVALENT 0.3ML, IM, (PFIZER SHEEHAN TOP BOOSTER) Influenza Virus 2021-12-01 Completed Universit y of Vaccine Quad IM, 00:00:00 [place] [facility] Preserv and ABX Branch Free 6 MO-64 YRS SARS-COV-2 COVID-19 2021-12-01 Completed Unive rsity of VILMA-SUCROSE 00:00:00 [place] [facility] VACCINE 12 YRS+, Branch BIVALENT 0.3ML, IM, (PFIZER SHEEHAN TOP BOOSTER) Influenza Virus 2021-12-01 Completed Universit y of Vaccine Quad IM, 00:00:00 [place] [facility] Preserv and ABX Branch Free 6 MO-64 YRS SARS-COV-2 COVID-19 2021-12-01 Completed Unive rsity of VILMA-SUCROSE 00:00:00 [place] [facility] VACCINE 12 YRS+, Branch BIVALENT 0.3ML, IM, (PFIZER SHEEHAN TOP BOOSTER) Influenza Virus 2021-12-01 Completed Universit y of Vaccine Quad IM, 00:00:00 [place] [facility] Preserv and ABX Branch Free 6 MO-64 YRS SARS-COV-2 COVID-19 2021-12-01 Completed Unive rsity of VILMA-SUCROSE 00:00:00 [place] [facility] VACCINE 12 YRS+, Branch BIVALENT 0.3ML, IM, (PFIZER SHEEHAN TOP BOOSTER) Influenza Virus 2021-12-01 Completed Universit y of Vaccine Quad IM, 00:00:00 [place] [facility] Preserv and ABX Branch Free 6 MO-64 YRS SARS-COV-2 COVID-19 2021-12-01 Completed Unive rsity of VILMA-SUCROSE 00:00:00 [place] [facility] VACCINE 12 YRS+, Branch BIVALENT 0.3ML, IM, (PFIZER SHEEHAN TOP BOOSTER) Influenza Virus 2021-12-01 Completed Universit y of Vaccine Quad IM, 00:00:00 [place] [facility] Preserv and ABX Branch Free 6 MO-64 YRS SARS-COV-2 COVID-19 2021-12-01 Completed Unive rsity of VILMA-SUCROSE 00:00:00 [place] [facility] VACCINE 12 YRS+, Branch BIVALENT 0.3ML, IM, (PFIZER SHEEHAN TOP BOOSTER) Influenza Virus 2021-12-01 Completed Universit y of Vaccine Quad IM, 00:00:00 [place] [facility] Preserv and ABX Branch Free 6 MO-64 YRS SARS-COV-2 COVID-19 2021-12-01 Completed Unive rsity of VILMA-SUCROSE 00:00:00 [place] [facility] VACCINE 12 YRS+, Branch BIVALENT 0.3ML, IM, (PFIZER SHEEHAN TOP BOOSTER) Influenza Virus 2021-12-01 Completed Universit y of Vaccine Quad IM, 00:00:00 [place] [facility] Preserv and ABX Branch Free 6 MO-64 YRS SARS-COV-2 COVID-19 2021-12-01 Completed Unive rsity of VILMA-SUCROSE 00:00:00 [place] [facility] VACCINE 12 YRS+, Branch BIVALENT 0.3ML, IM, (PFIZER SHEEHAN TOP BOOSTER) Influenza Virus 2021-12-01 Completed Universit y of Vaccine Quad IM, 00:00:00 [place] [facility] Preserv and ABX Branch Free 6 MO-64 YRS SARS-COV-2 COVID-19 2021-12-01 Completed Unive rsity of VILMA-SUCROSE 00:00:00 [place] [facility] VACCINE 12 YRS+, Branch BIVALENT 0.3ML, IM, (PFIZER SHEEHAN TOP BOOSTER) Influenza Virus 2021-12-01 Completed Universit y of Vaccine Quad IM, 00:00:00 [place] [facility] Preserv and ABX Branch Free 6 MO-64 YRS SARS-COV-2 COVID-19 2021-12-01 Completed Unive rsity of VILMA-SUCROSE 00:00:00 [place] [facility] VACCINE 12 YRS+, Branch BIVALENT 0.3ML, IM, (PFIZER SHEEHAN TOP BOOSTER) Influenza Virus 2021-12-01 Completed Universit y of Vaccine Quad IM, 00:00:00 [place] [facility] Preserv and ABX Branch Free 6 MO-64 YRS SARS-COV-2 COVID-19 2021-12-01 Completed Unive rsity of VILMA-SUCROSE 00:00:00 [place] [facility] VACCINE 12 YRS+, Branch BIVALENT 0.3ML, IM, (PFIZER SHEEHAN TOP BOOSTER) Influenza Virus 2021-12-01 Completed Universit y of Vaccine Quad IM, 00:00:00 [place] [facility] Preserv and ABX Branch Free 6 MO-64 YRS SARS-COV-2 COVID-19 2021-12-01 Completed Unive rsity of VILMA-SUCROSE 00:00:00 [place] [facility] VACCINE 12 YRS+, Branch BIVALENT 0.3ML, IM, (PFIZER SHEEHAN TOP BOOSTER) Influenza Virus 2021-12-01 Completed Universit y of Vaccine Quad IM, 00:00:00 [place] [facility] Preserv and ABX Branch Free 6 MO-64 YRS SARS-COV-2 COVID-19 2021-12-01 Completed Unive rsity of VILMA-SUCROSE 00:00:00 [place] [facility] VACCINE 12 YRS+, Branch BIVALENT 0.3ML, IM, (PFIZER SHEEHAN TOP BOOSTER) Influenza Virus 2021-12-01 Completed Universit y of Vaccine Quad IM, 00:00:00 [place] [facility] Preserv and ABX Branch Free 6 MO-64 YRS SARS-COV-2 COVID-19 2021-12-01 Completed Unive rsity of VILMA-SUCROSE 00:00:00 [place] [facility] VACCINE 12 YRS+, Branch BIVALENT 0.3ML, IM, (PFIZER SHEEHAN TOP BOOSTER) Influenza Virus 2021-12-01 Completed Universit y of Vaccine Quad IM, 00:00:00 [place] [facility] Preserv and ABX Branch Free 6 MO-64 YRS SARS-COV-2 COVID-19 2021-12-01 Completed Unive rsity of VILMA-SUCROSE 00:00:00 [place] [facility] VACCINE 12 YRS+, Branch BIVALENT 0.3ML, IM, (PFIZER SHEEHAN TOP BOOSTER) Influenza Virus 2021-12-01 Completed Universit y of Vaccine Quad IM, 00:00:00 [place] [facility] Preserv and ABX Branch Free 6 MO-64 YRS SARS-COV-2 COVID-19 2021-12-01 Completed Unive rsity of VILMA-SUCROSE 00:00:00 [place] [facility] VACCINE 12 YRS+, Branch BIVALENT 0.3ML, IM, (PFIZER SHEEHAN TOP BOOSTER) Influenza Virus 2021-12-01 Completed Universit y of Vaccine Quad IM, 00:00:00 [place] [facility] Preserv and ABX Branch Free 6 MO-64 YRS SARS-COV-2 COVID-19 2021-12-01 Completed Unive rsity of VILMA-SUCROSE 00:00:00 [place] [facility] VACCINE 12 YRS+, Branch BIVALENT 0.3ML, IM, (PFIZER SHEEHAN TOP) Influenza Virus 2021-12-01 Completed Universit y of Vaccine Quad IM, 00:00:00 [place] [facility] Preserv and ABX Branch Free 6 MO-64 YRS SARS-COV-2 COVID-19 2021-12-01 Completed Unive rsity of VILMA-SUCROSE 00:00:00 [place] [facility] VACCINE 12 YRS+, Branch BIVALENT 0.3ML, IM, (PFIZER SHEEHAN TOP) Influenza Virus 2021-12-01 Completed Universit y of Vaccine Quad IM, 00:00:00 [place] [facility] Preserv and ABX Branch Free 6 MO-64 YRS SARS-COV-2 COVID-19 2021-12-01 Completed Unive rsity of VILMA-SUCROSE 00:00:00 [place] [facility] VACCINE 12 YRS+, Branch BIVALENT 0.3ML, IM, (PFIZER SHEEHAN TOP) Influenza Virus 2021-12-01 Completed Universit y of Vaccine Quad IM, 00:00:00 [place] [facility] Preserv and ABX Branch Free 6 MO-64 YRS SARS-COV-2 COVID-19 2021-12-01 Completed Unive rsity of VILMA-SUCROSE 00:00:00 [place] [facility] VACCINE 12 YRS+, Branch BIVALENT 0.3ML, IM, (PFIZER SHEEHAN TOP) Influenza Virus 2021-12-01 Completed Universit y of Vaccine Quad IM, 00:00:00 [place] [facility] Preserv and ABX Branch Free 6 MO-64 YRS SARS-COV-2 COVID-19 2021-12-01 Completed Unive rsity of VILMA-SUCROSE 00:00:00 [place] [facility] VACCINE 12 YRS+, Branch BIVALENT 0.3ML, IM, (PFIZER SHEEHAN TOP BOOSTER) Influenza Virus 2021-12-01 Completed Universit y of Vaccine Quad IM, 00:00:00 [place] [facility] Preserv and ABX Branch Free 6 MO-64 YRS SARS-COV-2 COVID-19 2021-12-01 Completed Unive rsity of VILMA-SUCROSE 00:00:00 [place] [facility] VACCINE 12 YRS+, Branch BIVALENT 0.3ML, IM, (PFIZER SHEEHAN TOP BOOSTER) Influenza Virus 2021-12-01 Completed Universit y of Vaccine Quad IM, 00:00:00 [place] [facility] Preserv and ABX Branch Free 6 MO-64 YRS SARS-COV-2 COVID-19 2021-12-01 Completed Unive rsity of VILMA-SUCROSE 00:00:00 [place] [facility] VACCINE 12 YRS+, Branch BIVALENT 0.3ML, IM, (PFIZER SHEEHAN TOP BOOSTER) Influenza Virus 2021-12-01 Completed Universit y of Vaccine Quad IM, 00:00:00 [place] [facility] Preserv and ABX Branch Free 6 MO-64 YRS SARS-COV-2 COVID-19 2021-12-01 Completed Unive rsity of VILMA-SUCROSE 00:00:00 [place] [facility] VACCINE 12 YRS+, Branch BIVALENT 0.3ML, IM, (PFIZER SHEEHAN TOP BOOSTER) Influenza Virus 2021-12-01 Completed Universit y of Vaccine Quad IM, 00:00:00 [place] [facility] Preserv and ABX Branch Free 6 MO-64 YRS SARS-COV-2 COVID-19 2021-12-01 Completed Unive rsity of VILMA-SUCROSE 00:00:00 [place] [facility] VACCINE 12 YRS+, Branch BIVALENT 0.3ML, IM, (PFIZER SHEEHAN TOP BOOSTER) Influenza Virus 2021-12-01 Completed Universit y of Vaccine Quad IM, 00:00:00 [place] [facility] Preserv and ABX Branch Free 6 MO-64 YRS SARS-COV-2 COVID-19 2020-06-05 Completed Unive rsity of PFIZER VACCINE 00:00:00 [facility] Branch SARS-COV-2 COVID-19 2020-06-05 Completed Unive rsity of PFIZER VACCINE 00:00:00 [facility] Branch SARS-COV-2 COVID-19 2020-06-05 Completed Unive rsity of PFIZER VACCINE 00:00:00 [facility] Branch SARS-COV-2 COVID-19 2020-06-05 Completed Unive rsity of PFIZER VACCINE 00:00:00 [facility] Branch SARS-COV-2 COVID-19 2020-06-05 Completed Unive rsity of PFIZER VACCINE 00:00:00 [facility] Branch SARS-COV-2 COVID-19 2020-06-05 Completed Unive rsity of PFIZER VACCINE 00:00:00 [facility] Branch SARS-COV-2 COVID-19 2020-06-05 Completed Unive rsity of PFIZER VACCINE 00:00:00 [facility] Branch SARS-COV-2 COVID-19 2020-06-05 Completed Unive rsity of PFIZER VACCINE 00:00:00 [facility] Branch SARS-COV-2 COVID-19 2020-06-05 Completed Unive rsity of PFIZER VACCINE 00:00:00 [facility] Branch SARS-COV-2 COVID-19 2020-06-05 Completed Unive rsity of PFIZER VACCINE 00:00:00 [facility] Branch SARS-COV-2 COVID-19 2020-06-05 Completed Unive rsity of PFIZER VACCINE 00:00:00 [facility] Branch SARS-COV-2 COVID-19 2020-06-05 Completed Unive rsity of PFIZER VACCINE 00:00:00 [facility] Branch SARS-COV-2 COVID-19 2020-06-05 Completed Unive rsity of PFIZER VACCINE 00:00:00 [facility] Branch SARS-COV-2 COVID-19 2020-06-05 Completed Unive rsity of PFIZER VACCINE 00:00:00 [facility] Branch SARS-COV-2 COVID-19 2020-06-05 Completed Unive rsity of PFIZER VACCINE 00:00:00 [place] [facility] Branch SARS-COV-2 COVID-19 2020-06-05 Completed Unive rsity of PFIZER VACCINE 00:00:00 [facility] Branch SARS-COV-2 COVID-19 2020-06-05 Completed Unive rsity of PFIZER VACCINE 00:00:00 [facility] Branch SARS-COV-2 COVID-19 2020-06-05 Completed Unive rsity of PFIZER VACCINE 00:00:00 [facility] Branch SARS-COV-2 COVID-19 2020-06-05 Completed Unive rsity of PFIZER VACCINE 00:00:00 [facility] Branch SARS-COV-2 COVID-19 2020-06-05 Completed Unive rsity of PFIZER VACCINE 00:00:00 [facility] Branch SARS-COV-2 COVID-19 2020-06-05 Completed Unive rsity of PFIZER VACCINE 00:00:00 [facility] Branch SARS-COV-2 COVID-19 2020-06-05 Completed Unive rsity of PFIZER VACCINE 00:00:00 [facility] Branch SARS-COV-2 COVID-19 2020-06-05 Completed Unive rsity of PFIZER VACCINE 00:00:00 [facility] Branch SARS-COV-2 COVID-19 2020-06-05 Completed Unive rsity of PFIZER VACCINE 00:00:00 [facility] Branch SARS-COV-2 COVID-19 2020-06-05 Completed Unive rsity of PFIZER VACCINE 00:00:00 [facility] Branch SARS-COV-2 COVID-19 2020-06-05 Completed Unive rsity of PFIZER VACCINE 00:00:00 [facility] Branch SARS-COV-2 COVID-19 2020-06-05 Completed Unive rsity of PFIZER VACCINE 00:00:00 [facility] Branch SARS-COV-2 COVID-19 2020-06-05 Completed Unive rsity of PFIZER VACCINE 00:00:00 [facility] Branch SARS-COV-2 COVID-19 2020-06-05 Completed Unive rsity of PFIZER VACCINE 00:00:00 [facility] Branch SARS-COV-2 COVID-19 2020-06-05 Completed Unive rsity of PFIZER VACCINE 00:00:00 [facility] SARS-COV-2 COVID-19 2020-06-05 Completed Unive rsity of PFIZER VACCINE 00:00:00 [facility] Branch SARS-COV-2 COVID-19 2020-06-05 Completed Unive rsity of PFIZER VACCINE 00:00:00 [facility] Branch SARS-COV-2 COVID-19 2020-06-05 Completed Unive rsity of PFIZER VACCINE 00:00:00 [facility] Branch SARS-COV-2 COVID-19 2020-06-05 Completed Unive rsity of PFIZER VACCINE 00:00:00 [facility] Branch SARS-COV-2 COVID-19 2020-06-05 Completed Unive rsity of PFIZER VACCINE 00:00:00 [facility] SARS-COV-2 COVID-19 2020-06-05 Completed Unive rsity of PFIZER VACCINE 00:00:00 [facility] Branch SARS-COV-2 COVID-19 2020-06-05 Completed Unive rsity of PFIZER VACCINE 00:00:00 [facility] Branch SARS-COV-2 COVID-19 2020-06-05 Completed Unive rsity of PFIZER VACCINE 00:00:00 [facility] SARS-COV-2 COVID-19 2020-06-05 Completed Unive rsity of PFIZER VACCINE 00:00:00 [facility] SARS-COV-2 COVID-19 2020-06-05 Completed Unive rsity of PFIZER VACCINE 00:00:00 [facility] SARS-COV-2 COVID-19 2020-06-05 Completed Unive rsity of PFIZER VACCINE 00:00:00 [facility] Branch SARS-COV-2 COVID-19 2020-06-05 Completed Unive rsity of PFIZER VACCINE 00:00:00 [facility] SARS-COV-2 COVID-19 2020-05-15 Completed Unive rsity of PFIZER VACCINE 00:00:00 [facility] SARS-COV-2 COVID-19 2020-05-15 Completed Unive rsity of PFIZER VACCINE 00:00:00 [facility] SARS-COV-2 COVID-19 2020-05-15 Completed Unive rsity of PFIZER VACCINE 00:00:00 [place] [facility] SARS-COV-2 COVID-19 2020-05-15 Completed Unive rsity of PFIZER VACCINE 00:00:00 [facility] SARS-COV-2 COVID-19 2020-05-15 Completed Unive rsity of PFIZER VACCINE 00:00:00 [facility] Branch SARS-COV-2 COVID-19 2020-05-15 Completed Unive rsity of PFIZER VACCINE 00:00:00 [facility] Branch SARS-COV-2 COVID-19 2020-05-15 Completed Unive rsity of PFIZER VACCINE 00:00:00 [facility] SARS-COV-2 COVID-19 2020-05-15 Completed Unive rsity of PFIZER VACCINE 00:00:00 [facility] SARS-COV-2 COVID-19 2020-05-15 Completed Unive rsity of PFIZER VACCINE 00:00:00 [facility] SARS-COV-2 COVID-19 2020-05-15 Completed Unive rsity of PFIZER VACCINE 00:00:00 [facility] SARS-COV-2 COVID-19 2020-05-15 Completed Unive rsity of PFIZER VACCINE 00:00:00 [facility] SARS-COV-2 COVID-19 2020-05-15 Completed Unive rsity of PFIZER VACCINE 00:00:00 [facility] SARS-COV-2 COVID-19 2020-05-15 Completed Unive rsity of PFIZER VACCINE 00:00:00 [facility] SARS-COV-2 COVID-19 2020-05-15 Completed Unive rsity of PFIZER VACCINE 00:00:00 [facility] SARS-COV-2 COVID-19 2020-05-15 Completed Unive rsity of PFIZER VACCINE 00:00:00 [facility] SARS-COV-2 COVID-19 2020-05-15 Completed Unive rsity of PFIZER VACCINE 00:00:00 [facility] SARS-COV-2 COVID-19 2020-05-15 Completed Unive rsity of PFIZER VACCINE 00:00:00 [facility] SARS-COV-2 COVID-19 2020-05-15 Completed Unive rsity of PFIZER VACCINE 00:00:00 [facility] SARS-COV-2 COVID-19 2020-05-15 Completed Unive rsity of PFIZER VACCINE 00:00:00 [facility] SARS-COV-2 COVID-19 2020-05-15 Completed Unive rsity of PFIZER VACCINE 00:00:00 [facility] SARS-COV-2 COVID-19 2020-05-15 Completed Unive rsity of PFIZER VACCINE 00:00:00 [facility] SARS-COV-2 COVID-19 2020-05-15 Completed Unive rsity of PFIZER VACCINE 00:00:00 [facility] SARS-COV-2 COVID-19 2020-05-15 Completed Unive rsity of PFIZER VACCINE 00:00:00 [facility] SARS-COV-2 COVID-19 2020-05-15 Completed Unive rsity of PFIZER VACCINE 00:00:00 [facility] SARS-COV-2 COVID-19 2020-05-15 Completed Unive rsity of PFIZER VACCINE 00:00:00 [facility] SARS-COV-2 COVID-19 2020-05-15 Completed Unive rsity of PFIZER VACCINE 00:00:00 [facility] SARS-COV-2 COVID-19 2020-05-15 Completed Unive rsity of PFIZER VACCINE 00:00:00 [facility] SARS-COV-2 COVID-19 2020-05-15 Completed Unive rsity of PFIZER VACCINE 00:00:00 [facility] SARS-COV-2 COVID-19 2020-05-15 Completed Unive rsity of PFIZER VACCINE 00:00:00 [facility] SARS-COV-2 COVID-19 2020-05-15 Completed Unive rsity of PFIZER VACCINE 00:00:00 [facility] SARS-COV-2 COVID-19 2020-05-15 Completed Unive rsity of PFIZER VACCINE 00:00:00 [facility] SARS-COV-2 COVID-19 2020-05-15 Completed Unive rsity of PFIZER VACCINE 00:00:00 [facility] SARS-COV-2 COVID-19 2020-05-15 Completed Unive rsity of PFIZER VACCINE 00:00:00 [facility] SARS-COV-2 COVID-19 2020-05-15 Completed Unive rsity of PFIZER VACCINE 00:00:00 [facility] SARS-COV-2 COVID-19 2020-05-15 Completed Unive rsity of PFIZER VACCINE 00:00:00 [facility] SARS-COV-2 COVID-19 2020-05-15 Completed Unive rsity of PFIZER VACCINE 00:00:00 [facility] SARS-COV-2 COVID-19 2020-05-15 Completed Unive rsity of PFIZER VACCINE 00:00:00 [facility] SARS-COV-2 COVID-19 2020-05-15 Completed Unive rsity of PFIZER VACCINE 00:00:00 [facility] SARS-COV-2 COVID-19 2020-05-15 Completed Unive rsity of PFIZER VACCINE 00:00:00 [facility] SARS-COV-2 COVID-19 2020-05-15 Completed Unive rsity of PFIZER VACCINE 00:00:00 [facility] SARS-COV-2 COVID-19 2020-05-15 Completed Unive rsity of PFIZER VACCINE 00:00:00 [facility] SARS-COV-2 COVID-19 2020-05-15 Completed Unive rsity of PFIZER VACCINE 00:00:00 [facility] Td 2020-04-16 Completed University of 00:00:00 [facility] Td 2020-04-16 Completed University of 00:00:00 [facility] Td 2020-04-16 Completed University of 00:00:00 [facility] Td 2020-04-16 Completed University of 00:00:00 [facility] Td 2020-04-16 Completed University of 00:00:00 [facility] Td 2020-04-16 Completed University of 00:00:00 [facility] Td 2020-04-16 Completed University of 00:00:00 [facility] Td 2020-04-16 Completed University of 00:00:00 [facility] Td 2020-04-16 Completed University of 00:00:00 [facility] TD, NOS 2020-04-16 Completed University of 00:00:00 [facility] TD, NOS 2020-04-16 Completed University of 00:00:00 [facility] TD, NOS 2020-04-16 Completed University of 00:00:00 [facility] TD, NOS 2020-04-16 Completed University of 00:00:00 [facility] TD, NOS 2020-04-16 Completed University of 00:00:00 [facility] TD, NOS 2020-04-16 Completed University of 00:00:00 [facility] TD, NOS 2020-04-16 Completed University of 00:00:00 [facility] TD, NOS 2020-04-16 Completed University of 00:00:00 [facility] TD, NOS 2020-04-16 Completed University of 00:00:00 [facility] TD, NOS 2020-04-16 Completed University of 00:00:00 [facility] TD, NOS 2020-04-16 Completed University of 00:00:00 [facility] TD, NOS 2020-04-16 Completed University of 00:00:00 [facility] TD, NOS 2020-04-16 Completed University of 00:00:00 [facility] TD, NOS 2020-04-16 Completed University of 00:00:00 [facility] TD, NOS 2020-04-16 Completed University of 00:00:00 [facility] TD, NOS 2020-04-16 Completed University of 00:00:00 [facility] TD, NOS 2020-04-16 Completed University of 00:00:00 [facility] TD, NOS 2020-04-16 Completed University of 00:00:00 [facility] TD, NOS 2020-04-16 Completed University of 00:00:00 [facility] TD, NOS 2020-04-16 Completed University of 00:00:00 [facility] TD, NOS 2020-04-16 Completed University of 00:00:00 [facility] TD, NOS 2020-04-16 Completed University of 00:00:00 [facility] TD, NOS 2020-04-16 Completed University of 00:00:00 [facility] TD, NOS 2020-04-16 Completed University of 00:00:00 [facility] TD, NOS 2020-04-16 Completed University of 00:00:00 [facility] Td 2020-04-16 Completed University of 00:00:00 [facility] Td 2020-04-16 Completed University of 00:00:00 [facility] Td 2020-04-16 Completed University of 00:00:00 [facility] Td 2020-04-16 Completed University of 00:00:00 [facility] Td 2020-04-16 Completed University of 00:00:00 [facility] Td 2020-04-16 Completed University of 00:00:00 [facility] Td 2020-04-16 Completed University of 00:00:00 [facility] Td 2020-04-16 Completed University of 00:00:00 [facility] Vital Signs Vital Name Observation Time Observation Value Comments Source Systolic blood 2022-07-21 17:37:00 138 mm[Hg] Univer sity of pressure [facility] Diastolic blood 2022-07-21 17:37:00 76 mm[Hg] Unive rsity of pressure [facility] Heart rate 2022-07-21 17:37:00 83 /min Universi ty of [facility] Body height 2022-07-21 17:37:00 172.7 cm Universi ty of [facility] Body weight 2022-07-21 17:37:00 106.278 kg Universi ty of [facility] BMI 2022-07-21 17:37:00 35.63 kg/m2 Universi ty of [facility] Oxygen saturation in 2022-07-21 17:37:00 96 /min University of Arterial blood by [facility] oximetry Branch Systolic blood 2022-05-12 07:22:01 170 mm[Hg] Univer sity of pressure [facility] Diastolic blood 2022-05-12 07:22:01 91 mm[Hg] Unive rsity of pressure [facility] Heart rate 2022-05-12 07:22:01 64 /min Universi ty of [facility] Respiratory rate 2022-05-12 07:22:01 18 /min Univ ersity of [facility] Oxygen saturation in 2022-05-12 07:22:01 97 /min University of Arterial blood by [facility] oxim[facility] Branch Body temperature 2022-05-12 02:33:00 37 Yoana Univ ersity of [facility] Body height 2022-05-12 02:33:00 172.7 cm Universi ty of [facility] Body weight 2022-05-12 02:33:00 104.327 kg Universi ty of [facility] BMI 2022-05-12 02:33:00 34.97 kg/m2 Universi ty of [facility] Systolic blood 2022-05-10 19:30:00 129 mm[Hg] Univer sity of pressure [facility] Diastolic blood 2022-05-10 19:30:00 78 mm[Hg] Unive rsity of pressure [facility] Heart rate 2022-05-10 19:30:00 81 /min Universi ty of [facility] Body temperature 2022-05-10 19:30:00 36.89 Yoana Univ ersity of [facility] Body height 2022-05-10 19:30:00 172.7 cm Universi ty of [facility] Body weight 2022-05-10 19:30:00 106.595 kg Universi ty of [facility] BMI 2022-05-10 19:30:00 35.73 kg/m2 Universi ty of [facility] Systolic blood 2022-05-09 16:19:00 111 mm[Hg] Univer sity of pressure [facility] Diastolic blood 2022-05-09 16:19:00 69 mm[Hg] Unive rsity of pressure [facility] Heart rate 2022-05-09 16:19:00 83 /min Universi ty of [facility] Body temperature 2022-05-09 16:19:00 36.78 Yoana Univ ersity of [facility] Body height 2022-05-09 16:19:00 172.7 cm Universi ty of [facility] Body weight 2022-05-09 16:19:00 106.142 kg Universi ty of [facility] BMI 2022-05-09 16:19:00 35.58 kg/m2 Universi ty of [facility] Oxygen saturation in 2022-05-09 16:19:00 97 /min University Arterial blood by [facility] oxim[facility] Branch Systolic blood 2022-04-26 15:07:00 131 mm[Hg] Univer sity of pressure [facility] Diastolic blood 2022-04-26 15:07:00 69 mm[Hg] Unive rsity of pressure [facility] Heart rate 2022-04-26 15:07:00 70 /min Universi ty of [facility] Body temperature 2022-04-26 15:07:00 36.94 Yoana Univ ersity of [facility] Respiratory rate 2022-04-26 15:07:00 14 /min Univ ersity of [facility] Body height 2022-04-26 15:07:00 172.7 cm Universi ty of [facility] Body weight 2022-04-26 15:07:00 104.327 kg Universi ty of [facility] BMI 2022-04-26 15:07:00 34.97 kg/m2 Universi ty of [facility] Oxygen saturation in 2022-04-26 15:07:00 98 /min University of Arterial blood by [facility] oximetry Branch Systolic blood 2022-01-17 16:12:00 133 mm[Hg] Univer sity of pressure [facility] Diastolic blood 2022-01-17 16:12:00 82 mm[Hg] Unive rsity of pressure [facility] Heart rate 2022-01-17 16:12:00 71 /min Universi ty of [facility] Body height 2022-01-17 16:12:00 172.7 cm Universi ty of [facility] Body weight 2022-01-17 16:12:00 105.235 kg Universi ty of [facility] BMI 2022-01-17 16:12:00 35.28 kg/m2 Universi ty of [facility] Systolic blood 2021-12-19 20:39:00 126 mm[Hg] Univer sity of pressure [facility] Diastolic blood 2021-12-19 20:39:00 68 mm[Hg] Unive rsity of pressure [facility] Heart rate 2021-12-19 20:39:00 71 /min Universi ty of [facility] Body temperature 2021-12-19 20:39:00 36.83 Yoana Univ ersity of [facility] Respiratory rate 2021-12-19 20:39:00 18 /min Univ ersity of [facility] Body height 2021-12-19 20:39:00 172.7 cm Universi ty of [facility] Body weight 2021-12-19 20:39:00 106.414 kg Universi ty of [facility] BMI 2021-12-19 20:39:00 35.67 kg/m2 Universi ty of [facility] Oxygen saturation in 2021-12-19 20:39:00 96 /min University of Arterial blood by [facility] oxim[facility] Branch Systolic blood 2021-12-01 18:23:00 128 mm[Hg] Univer sity of pressure [facility] Diastolic blood 2021-12-01 18:23:00 83 mm[Hg] Unive rsity of pressure [facility] Heart rate 2021-12-01 18:23:00 75 /min [facility] Body temperature 2021-12-01 18:23:00 36.44 Yoana [facility] Body height 2021-12-01 18:23:00 172.7 cm [facility] Body weight 2021-12-01 18:23:00 104.599 kg [facility] BMI 2021-12-01 18:23:00 35.06 kg/m2 [facility] Oxygen saturation in 2021-12-01 18:23:00 98 /min [facility] Arterial blood by [facility] oximetry Branch Procedures Procedure Date / Time Performing Clinician Source Performed EXTERNAL PROVIDER RECORDS 2022-05-23 06:01:00 Doctor Luana, [facility] NOTICE OF PRIVACY 2022-05-12 02:22:55 Doctor Luana, [facility] PRACTICES [facility] CONSENT/REFUSAL FOR 2022-05-12 02:20:18 Doctor Luana, [facility] DIAGNOSIS AND TREATMENT [facility] XR PELVIS <3 VW 2022-04-26 15:40:[address] [facility] o f [facility] XR HIPS 2 VW RIGHT 2022-04-26 15:40:[address] [facility] MEDICAL RELEASE/CLEARANCE 2022-04-07 06:01:00 Doctor Craft [facility] FORMS [facility] MEDICATION CORRESPONDENCE 2021-12-20 05:01:00 Doctor Craft [facility] INSURANCE CORRESPONDENCE 2021-12-12 05:01:00 Doctor Craft, [facility] FLU VACC ([phone]), 6 2021-12-01 19:56:38 Justo Esparza [facility] MO-65 YRS, .5ML, IM, QUAD Medica l Branch (FLUCELVAX) SARS-COV-2 COVID-19 2021-12-01 19:55:45 Justo Esparza [facility] VILMA-SUCROSE VACCINE 12 Medical Branch YRS+, BIVALENT 0.3ML, IM, (PFIZER SHEEHAN TOP BOOSTER) HB ECG ROUTINE & RHYTHM 2021-12-01 18:01:24 Nesha Esteban [facility] Plan of Care Planned Activity Planned Date Details Comments Source Future Scheduled 2022-06-23 COVID-19 VACCINE (#1) [facility] Test 14:11:46 [code = COVID-19 VACCINE (#1)] Future Scheduled 2022-06-23 Screening for [facility] Test 14:11:46 malignant neoplasm of cervix (procedure) [code = 969305353] Future Scheduled 2022-06-23 BREAST CANCER [facility] Test 14:11:46 SCREENING [code = BREAST CANCER SCREENING] Future Scheduled 2022-06-23 COLONOSCOPY SCREENING [facility] Test 14:11:46 [code = COLONOSCOPY SCREENING] Future Scheduled 2022-06-23 SHINGLES VACCINES (1 [facility] Test 14:11:46 of 2) [code = SHINGLES VACCINES (1 of 2)] Future Scheduled 2022-06-23 INFLUENZA VACCINE [email or web address] Test 14:11:46 [code = INFLUENZA VACCINE] Encounters Start End Encounter Admission Attending Care Care Encounter Source Date/Time Date/Time Type Type Clinicians Facility Department ID 2021-01-15 Emergency [facility] [id number] Univers [facility] 2021-01-15 Emergency [facility] [id number] Univers 02:25:49 [facility] 2022-07-26 2022-07-26 [facility] [id number] Univers 00:00:00 00:00:00 [facility] [id number] it y of Edward [place] [id number] Jamie as ERICH?BLEA [phone] [address] MEDICAL OFFICE BUILDING 2022-07-26 2022-07-26 [facility] [id number] Univers 00:00:00 00:00:00 [facility] [id number] it y of [place] [id number] Jamie as ERICH?BLEA [id number] [address] MEDICAL OFFICE BUILDING 2022-07-21 2022-07-21 Office Amado [facility] 1.2.840.114 [id number] Univers 12:30:00 12:56:37 Visit Neshabony MARMOLEJO [id number] i ty of [place] 4.2.7.2.686 Jamie as ERICH?BLEA [id number] [address] OFFICE [facility] 2022-07-21 2022-07-21 Outpatient [facility] [id number] Univers 12:30:00 12:56:37 NESHA arellano [facility] 2022-05-25 2022-05-25 Refill [facility] 1.2.840.114 [id number] Univers 00:00:00 00:00:00 [facility] [id number] it y of [place] 4.2.7.2.686 Jamie as ERICH?BLEA [id number] [address] OFFICE [facility] 2022-05-23 2022-05-23 Orders Doctor DUNCAN 1.2.840.114 [id number] Univers 00:00:00 00:00:00 Only Unassigned, OLIVERIO [id number] ity of Archer [facility] 4.2.7.2.686 Jamie as [phone] [address] 2022-05-16 2022-05-16 Patient [facility] 1.2.840.114 [id number] Univers 00:00:00 00:00:00 Secure Msg [facility] [id number] ity of [place] 4.2.7.2.686 Jamie as ERICH?BLEA [id number] [address] OFFICE [facility] 2022-05-11 2022-05-12 Emergency X [facility] ERT [id number] Univers 20:36:00 01:30:00 MORAIMA arellano [facility] 2022-05-11 2022-05-12 Emergency [facility] [id number] Univers 20:36:00 01:30:00 Moraima FLORESBANNER [id number] ity [place] [id number] [place] 6[address]14 [place] 2022-05-12 2022-05-12 Patient Marty [facility] 1.2.840.114 [id number] Univers 00:00:00 00:00:00 Secure Msg Brandon [facility] [id number] ity of [place] 4.2.7.2.686 Jamie as ERICH?BLEA [phone] [place] irma HAMMER [address] [place] [address] MEDICAL OFFICE [facility] 2022-05-12 2022-05-12 Telephone [facility] 1.2.840.114 [id number] [facility] 00:00:00 00:00:00 Brandon [facility] [id number] it y of [place] 4.2.7.2.686 Jamie as ERICH?BLEA [id number] [address] 2022-05-10 2022-05-10 [facility], Ang - [facility] 1.2.840.1 [id number] Univers 14:00:00 14:02:37 Visit Marty [facility] 350.1.13 .10 ity of [place] 4.2.7.2.686 Jamie as ERICH?BLEA [id number] [place] HAMMER [address] [facility] OFFICE [facility] 2022-05-10 2022-05-10 Outpatient R MARTY [facility] [id number] Univers 13:15:00 13:53:04 [facility] 2022-05-10 2022-05-10 Office [facility] 1.2.840.114 [id number] Univers 13:15:00 13:53:04 Visit [facility] [id number] it y of [place] 4.2.7.2.686 Jamie as ERICH?BLEA [id number] [place] jordande LAZARUS[address] OFFICE [facility] 2022-05-10 2022-05-10 Telephone [facility] [id number] Univers 00:00:00 00:00:00 [facility] [id number] it y of [place] 4.2.7.2.686 Jamie as ERICH?BLEA [id number] [facility] [address] [place] [address] OFFICE [facility] 2022-05-09 2022-05-09 Outpatient [facility] [id number] Univers 10:30:00 11:00:21 GALINA ity of [facility] 2022-05-09 2022-05-09 [facility] 1.2.840.114 [id number] Univers 10:30:00 11:00:21 Visit Galina HEALTH [id number] it y of [place] 4.2.7.2.686 Jamie as ERICH?BLEA [id number] [facility] 0[address] [place] MEDICAL OFFICE [facility] 2022-04-26 2022-04-26 [facility] 1.2.840.114 [id number] Univers 09:17:10 23:59:00 Encounter Tonja HEALTH [id number] ity of [place] 4.2.7.2.686 Jamie as ERICH?BLEA [id number] [facility] [address] [facility] OFFICE [facility] 2022-04-26 2022-04-26 Outpatient R [facility] [id number] Univers 09:17:09 23:59:00 [facility] 2022-04-26 2022-04-26 [facility] 1.2.840.114 [id number] Univers 09:17:09 23:59:00 Encounter Tonja HEALTH 350.1.13.10 ity of [place] 4.2.7.2.686 Jamie as ERICH?BLEA [id number] [facility] [address] [facility] OFFICE [facility] 2022-04-26 2022-04-26 [facility] Renato [facility] 1.2.840.114 [id number] Univers 09:00:00 10:05:14 Care Unknown, [facility] HEALTH [id number] ity of [place] 4.2.7.2.686 Jamie as ERICH?BLEA [id number] [facility] [address] [place] MEDICAL OFFICE [facility] 2022-04-25 2022-04-25 Telephone [facility] 1.2.840.114 [id number] Univers 00:00:00 00:00:00 Brandon HEALTH 350.1.13.10 it y of [place] 4.2.7.2.686 Jamie as ERICH?BLEA [id number] [address] OFFICE [facility] 2022-04-07 2022-04-07 Telephone [facility] [id number] Univers 00:00:00 00:00:00 Mariano CONWAY 350.1.13.10 [facility] [place] [id number] [facility] NAL 059 [facility] 2022-04-07 2022-04-07 Orders Doctor DUNCAN 1.2.840.114 [id number] Univers 00:00:00 00:00:00 Only Unassigned, OLIVERIO 350.1.13.10 ity of [place] [facility] 4.2.7.2.686 Jamie as [phone] [address] 2022-03-24 2022-03-24 [facility] 1.2.840.114 [id number] Univers 00:00:00 00:00:00 Brandon [employer] 350.1.13.10 it y of [place] 4.2.7.2.686 Jamie as ERICH?BLEA [id number] [address] OFFICE [facility] 2022-02-23 2022-02-23 [facility] 1.2.840.114 [id number] Univers 00:00:00 00:00:00 Nesha A HEALTH 350.1.13.10 i ty of [place] 4.2.7.2.686 Jamie as ERICH?BLEA [id number] [address] OFFICE [facility] 2022-02-20 2022-02-20 [facility] 1.2.840.114 [id number] Univers 00:00:00 00:00:00 Nesha A HEALTH 350.1.13.10 i ty of [place] 4.2.7.2.686 Jamie as ERICH?BLEA [id number] [address] OFFICE [facility] 2022-01-17 2022-01-17 Office [facility] 1.2.840.114 [id number] Univers 11:15:00 11:30:00 Visit Brandon [facility] 350.1.13.10 it y of [place] 4.2.7.2.686 Jamie as ERICH?BLEA [id number] [facility] ISAURO [address] [facility] OFFICE [facility] 2022-01-17 2022-01-17 Outpatient R MARTY [facility] [id number] Univers 11:15:00 11:15:00 BRANDON ity of [facility] 2022-01-06 2022-01-06 Telephone [facility] [id number] Univers 00:00:00 00:00:00 [facility] 350.1.13.10 [place] [id number] [facility] [facility] 059 [facility] 2022-01-05 2022-01-05 Outpatient R [facility] [id number] Univers 13:55:44 23:59:00 MARIANO arellano o [facility] 2021-12-23 2021-12-23 Refill [facility] 1.2.840.114 [id number] Univers 00:00:00 00:00:00 Nesha Tia HEALTH 350.1.13.10 i ty of [place] 4.2.7.2.686 Jamie as ERICH?BLEA [id number] [address] OFFICE [facility] 2021-12-20 2021-12-20 Orders Doctor DUNCAN 1..840.114 [id number] Univers 00:00:00 00:00:00 Only Unassigned, OLIVERIO 350.1.13.10 ity of [place] [facility] 4.2.7.2.686 Jamie as [id number] [address] 2021-12-19 2021-12-19 Outpatient R [facility] [id number] Univers 15:40:00 15:55:20 MARIANO ity o f [facility] 2021-12-19 2021-12-19 Office [facility] 1.2.840.114 [id number] Univers 15:40:00 15:55:20 Visit Mariano [place] 350.1.13.10 ity of [place] PROFESSIO [phone] Nc irma LIGHT 059 [facility] 2021-12-14 2021-12-14 [facility] 1.2.840.114 [id number] Univers 00:00:00 00:00:00 Nesha A HEALTH 350.1.13.10 i ty of [place] 4.2.7.2.686 Jamie as ERICH?BLEA [phone] [address] MEDICAL OFFICE [facility] 2021-12-12 2021-12-12 Orders Doctor DUNCAN 1.2.840.114 [id number] Univers 00:00:00 00:00:00 Only Unassigned, OLIVERIO 350.1.13.10 ity of [place] [facility] 4.2.7.2.686 Jamie as [phone] [address] 2021-12-01 2021-12-01 [facility] [id number] Univers 13:00:00 14:13:49 NESHA ity of [facility] 2021-12-01 2021-12-01 Office [facility] 1.2.840.114 [id number] Univers 13:00:00 14:13:49 Visit Nesha A HEALTH 350.1.13.10 i ty of [place] 4.2.7.2.686 Jamie as ERICH?BLEA [phone] [address] OFFICE [facility] 2021-11-25 2021-11-25 Telephone [facility] 1.2.304.320 [id number] Univers 00:00:00 00:00:00 Nesha A HEALTH 350.1.13.10 i ty of [place] 4.2.7.2.686 Jamie as ERICH?BLEA [phone] [address] OFFICE [facility] 2021-09-29 2021-09-29 Telephone Marty [facility] 1.2.840.114 [id number] Univers 00:00:00 00:00:00 Brandon HEALTH 350.1.13.10 it y of [place] 4.2.7.2.686 Jamie as ERICH?BLEA [phone] Nc irma VELAZQUEZEY [address] [place] [address] OFFICE [facility] 2021-09-22 2021-09-22 Telephone [facility] 1.2.218.665 [id number] Univers 00:00:00 00:00:00 Mariano [place] 350.1.13.10 ity [facility] 4.2.7.2.[place] PROFESS[place] [phone] Nc irma NAL [address] [place] [address] 2021-09-22 2021-09-22 Telephone [facility] 1.2.840.114 [id number] Univers 00:00:00 00:00:00 Brandon HEALTH 350.1.13.10 it y of Rito [place] 4.2.7.2.686 Jamie as ERICH?BLEA [phone] [facility] VELAZQUEZ[address] OFFICE [facility] 2021-09-22 2021-09-22 Telephone [facility] 1.2.141.591 [id number] Univers 00:00:00 00:00:00 [facility] 350.1.13.10 ity of [place].7.2.[place] PROFESSIO [phone] Nc jordande NAL [address] [place] [address] 2021-09-20 2021-09-20 Telephone [facility] 1.2.024.211 [id number] Univers 00:00:00 00:00:00 Nesha A HEALTH 350.1.13.10 i ty of [place] 4.2.7.2.686 Jamie as ERICH?BLEA [phone] [facility] ISAURO [address] [place] [address] OFFICE [facility] 2021-09-15 2021-09-15 Telephone [facility] 1.2.779.145 [id number] Univers 00:00:00 00:00:00 Nesha A HEALTH 350.1.13.10 i ty of [place] 4.2.7.2.686 Jamie as ERICH?BLEA [phone] [address] OFFICE [facility] 2021-09-15 2021-09-15 Patient [facility] 1.2.840.114 [id number] Univers 00:00:00 00:00:00 Secure Msg Brandon HEALTH 350.1.13.10 ity of [place] 4.2.7.2.686 Jamie as ERICH?BLEA [phone] [address] MEDICAL OFFICE [facility] 2021-09-14 2021-09-14 Picker Tender Lab, Ang - Db [facility] 1.2.840.1 [id number] Univers 16:15:00 16:30:00 Visit Nile Estebanbony Weber HEALTH 350.1.13.10 ity of [place] 4.2.7.2.686 Jamie as ERICH?BLEA [phone] [facility] [address] [facility] OFFICE [facility] 2021-09-14 2021-09-14 Outpatient [facility] [id number] Univers 15:30:00 16:17:13 NESHA ity [facility] 2021-09-14 2021-09-14 Office [facility] 1.2.840.114 [id number] Univers 15:30:00 16:17:13 Visit Nesha A [facility] 350.1.13.10 i ty of [place] 4.2.7.2.686 Jamie as REICH?BLEA [phone] [address] OFFICE [facility] 2021-09-14 2021-09-14 Outpatient R AMADO, [facility] [id number] Univers 16:15:00 16:15:00 NESHA ity [facility] 2021-09-14 2021-09-14 Orders Doctor SONG 1.2.840.114 [id number] Univers 00:00:00 00:00:00 Only Unassigned, OLIVERIO 350.1.13.10 ity of [place] [facility] 4.2.7.2.686 Jamie as [phone] [address] 2021-08-25 2021-08-25 Virginie Ferguson [facility] 1.2.840.114 [id number] Univers 00:00:00 00:00:00 Brandon HEALTH 350.1.13.10 it y of [place] 4.2.7.2.686 Jamie as ERICH?BLEA [phone] [address] MEDICAL OFFICE [facility] 2021-07-11 2021-07-11 [facility] 1.2.840.114 [id number] Univers 00:00:00 00:00:00 Brandon HEALTH 350.1.13.10 it y of [place] 4.2.7.2.686 Jamie as PROFESSIO [phone] [address] ONE 2021-05-09 2021-05-09 [facility] 1.2.840.114 [id number] Univers 00:00:00 00:00:00 Brandon HEALTH 350.1.13.10 it y of [place] 4.2.7.2.686 Jamie as PROFESSIO [phone] [address] OFFICE [facility] ONE 2021-03-23 2021-03-23 Outpatient R DUTCH [facility] [id number] Univers 17:00:00 17:34:10 [facility] 2021-03-23 2021-03-23 Laboratory Only, Ang Db Test [facility] 1.2.8 40.114 [id number] Univers 17:00:00 17:15:00 Only Dutch [facility] 350.1.13.10 ity of [place] 4.2.7.2.686 Jamie as ERICH?BLEA [phone] [facility] ISAURO [address] [facility] OFFICE [facility] 2021-03-16 2021-03-16 Outpatient R ANDREI [facility] [id number] Univers 15:21:37 23:59:00 [facility] 2021-03-16 2021-03-16 [facility] 1.2.840.114 [id number] Univers 15:21:37 23:59:00 Encounter [facility] 350.1.13.10 ity of [place] 4.2.7.2.686 Jamie as ERICH?BLEA [phone] [facility] ISAURO 809 [facility] OFFICE [facility] 2021-03-16 2021-03-16 Office [facility] 1.2.840.114 [id number] Univers 15:00:00 15:15:00 Visit [facility] 350.1.13.10 it y of [place] 4.2.7.2.686 Jamie as ERICH?BLEA [phone] [facility] LAZARUS 044 [facility] OFFICE [facility] 2021-03-16 2021-03-16 Outpatient R ANDREI [facility] [id number] Univers 15:00:00 15:00:00 JUSTO [facility] 2021-03-15 2021-03-15 Outpatient [facility] [id number] Univers 19:30:00 19:30:00 [facility] 2021-03-15 2021-03-15 Laboratory Only, Ang Db Test [facility] 1.2.8 40.114 [id number] Univers 19:30:00 19:30:00 Only Renato [facility] 350.1.13.10 ity of [place] 4.2.7.2.686 Jamie as ERICH?BLEA [phone] [facility] LAZARUS [address] [facility] OFFICE [facility] 2021-03-15 2021-03-15 Outpatient Alonzo [facility] [id number] Univers 19:30:00 19:25:26 [facility] 2021-03-14 2021-03-14 [facility] 1.2.840.114 [id number] Univers 00:00:00 00:00:00 [facility]ALTH 350.1.13.10 it y of [place] 4.2.7.2.686 Jamie as PROFESSIO [phone] [address] ONE 2021-02-26 2021-02-26 [facility] 1.2.840.114 [id number] Univers 00:00:00 00:00:00 [facility] HEALTH 350.1.13.10 it y of [place] 4.2.7.2.686 Jamie as PROFESSIO [phone] [address] ONE 2021-02-14 2021-02-14 Outpatient Alonzo [facility] [id number] Univers 10:39:04 23:59:00 [facility] 2021-02-14 2021-02-14 [facility] 1.2.840.114 [id number] Univers 10:39:04 23:59:00 Encounter Tonja [facility] 350.1.13.10 ity of [place] 4.2.7.2.686 Jamie as ERICH?BLEA [phone] Me dical ISAURO [address] MEDICAL OFFICE BUILDING 2021-02-14 2021-02-14 Urgent Tonja Gross [facility] 1.2.840.114 [id number] Univers 09:58:39 10:49:06 Care Miguelina Manriquez [facility] 350.1.13.10 ity of [place] 4.2.7.2.686 Jamie as ERICH?BLEA [phone] Me dicsilviano HAMMER [address] MEDICAL OFFICE BUILDING 2020-12-08 2020-12-08 Office [facility] 1.2.699.430 [id number] Univers 13:41:19 15:55:32 Visit Kwame Carrion [facility] 350.1.13.10 it y of [place] 4.2.7.2.686 Jamie as Erich?Blea [phone] Me irma hammer [address] [facility] Office [facility] 2020-12-08 2020-12-08 Outpatient R [facility] [id number] Univers 13:45:00 13:45:00 KWAME [facility] 2020-12-07 2020-12-07 Orders Doctor DUNCAN 1.2.840.114 [id number] Univers 00:00:00 00:00:00 Only Unassigned, OLIVERIO 350.1.13.10 ity of [facility] 4.2.7.2.686 Jamie as [phone] [address] 2020-12-06 2020-12-06 Telephone Marty [facility] 1.2.840.114 [id number] Univers 00:00:00 00:00:00 [facility] 350.1.13.10 it y of [place] 4.2.7.2.686 Jamie as Erich?Blea [phone] Me dicsilviano hammer [address] [facility] Building 2020-12-05 2020-12-05 Hospital [facility] 1.2.840.114 [id number] Univers 15:15:32 23:59:00 Encounter [facility] 350.1.13.10 ity of [place] 4.2.7.2.686 Jamie as Erich?Blea [phone] Nc dical isauro [address] [facility] 2020-12-05 2020-12-05 Urgent Leslie Perales [facility] 1.2.840.11 [id number] Univers 14:35:15 16:06:25 Care [facility] 350.1.13.10 ity of [place] 4.2.7.2.686 Jamie as Erich?Blea [phone] Nc dical lazarusey [address] [facility] Building 2020-12-05 2020-12-05 [facility] 1.2.840.114 [id number] Univers 14:57:41 15:14:00 Encounter [facility] 350.1.13.10 ity of [place] 4.2.7.2.686 Jamie as Erich?Blea [phone] Nc dicsilviano bree [address] [facility] 2020-12-05 2020-12-05 Outpatient R [facility] [id number] Univers 14:20:00 14:20:00 ity of [facility] 2020-11-03 2020-11-03 Patient Doctor DUNCAN 1.2.840.114 [id number] Univers 00:00:00 00:00:00 Secure Msg Unassigned, OLIVERIO 350.1.13.10 ity of [place] [facility] 4.2.7.2.686 Jamie as [phone] [address] 2020-11-02 2020-11-02 Outpatient R [facility] [id number] Univers 12:15:00 12:15:00 OMAYEMI ity of [facility] 2020-11-01 2020-11-01 Virginie Ferguson [facility] 1.2.840.114 [id number] Univers 00:00:00 00:00:00 [facility] 350.1.13.10 it y of [place] 4.2.7.2.686 Jamie as Professio [phone] Nc dical nal [address] One 2020-07-08 2020-07-08 [facility] 1.2.840.114 [id number] [facility] 00:00:00 00:00:00 [facility] 350.1.13.10 it y of [place] 4.2.7.2.686 Jamie as Professio [phone] [address] Office Building One 2020-07-07 2020-07-07 [facility] 1.2.840.114 [id number] Univers 00:00:00 00:00:00 [facility] 350.1.13.10 it y of [place] 4.2.7.2.686 Jamie as Professio [phone] [address] Office [facility] One 2020-07-07 2020-07-07 [facility] 1.2.840.114 [id number] Univers 00:00:00 00:00:00 [facility] 350.1.13.10 it y of [place] 4.2.7.2.686 Jamie as Professio [phone] [address] Office [facility] One 2020-07-07 2020-07-07 [facility] 1.2.840.114 [id number] [facility] 00:00:00 00:00:00 [facility] 350.1.13.10 it y of [place] 4.2.7.2.686 Jamie as Professio [phone] [address] Office [facility] One 2020-07-02 2020-07-02 Office [facility] 1.2.840.114 [id number] Univers 13:56:55 14:11:55 Visit [facility] 350.1.13.10 it y of [place] 4.2.7.2.686 Jamie as Professio [phone] [address] Office [facility] One 2020-07-02 2020-07-02 Outpatient [facility] [id number] [facility] 14:00:00 14:00:00 BRANDON arellano of [facility] 2020-06-30 2020-06-30 [facility] 1.2.840.114 [id number] Univers 00:00:00 00:00:00 [facility] 350.1.13.10 it y of [place] 4.2.7.2.686 Jamie as Professio [phone] [address] One 2020-06-20 2020-06-20 Orders Doctor DUNCAN 1.2.840.114 [id number] Univers 00:00:00 00:00:00 Only Unassigned, OLIVERIO 350.1.13.10 [facility] 4.2.7.2.686 Jamie as [phone] [address] 2020-06-14 2020-06-14 Ref[facility]odan [facility] 1.2.840.114 [id number] Univers 00:00:00 00:00:00 [facility] 350.1.13.10 it y of [place] 4.2.7.2.686 Jamie as Professio [phone] [address] One 2020-06-05 2020-06-05 Outpatient [facility] [id number] Univers 09:50:00 09:50:00 ity [facility] 2020-05-15 2020-05-15 Outpatient [facility] [id number] Univers 09:45:00 09:45:00 ity [facility] 2020-05-12 2020-05-12 Laboratory Lab, Adc Fam Pob I [facility] 1.2. 840.114 [id number] Univers 14:24:17 14:44:17 Only Nesha [facility] 350.1.13.10 ity of [place] 4.2.7.2.686 Jamie as Professio [phone] [address] Office [facility] One 2020-05-12 2020-05-12 Outpatient R AMADO [facility] [id number] Univers 14:20:00 14:20:00 NESHA ity [facility] 2020-04-16 2020-04-16 Emergency [facility] 1.2.741.574 [id number] Univers 09:49:00 11:58:00 Brandon [place] 350.1.13.10 i ty of [place] 4.2.7.2.686 [facility] [phone] [address] 2020-04-16 2020-04-16 Orders Doctor DUNCAN 1.2.840.114 [id number] Univers 00:00:00 00:00:00 Only Unassigned, OLIVERIO 350.1.13.10 ity of [facility] 4.2.7.2.686 Jamie as [phone] [address] 2020-01-19 2020-01-19 [facility] 1.2.840.114 [id number] Univers 10:58:00 13:39:00 Jono [place] 350.1.13.10 i ty of [place] 4.2.7.2.686 [facility] [phone] [address] 2020-01-19 2020-01-19 Orders Doctor SONG 1.2.840.114 [id number] Univers 00:00:00 00:00:00 Only Unassigned, OLIVERIO 350.1.13.10 ity of [facility] 4.2.7.2.686 Jamie as [phone] [address] 2019-08-13 2019-08-13 Orders Doctor DUNCAN 1.2.840.114 [id number] Univers 00:00:00 00:00:00 Only Unassigned, OLIVERIO 350.1.13.10 ity of [facility] 4.2.7.2.686 Jamie as [phone] [address] 2019-06-03 2019-06-03 [facility] 1.2.840.114 [id number] Univers 00:00:00 00:00:00 [facility] 350.1.13.10 it y of [place] 4.2.7.2.686 Jamie as Professio [phone] [facility] [address] One 2018-10-21 2018-10-21 [facility] 1.2.840.114 [id number] Univers 00:00:00 00:00:00 [facility] 350.1.13.10 it y of [place] 4.2.7.2.686 Jamie as Professio [phone] Nc dical nal [address] One Results This patient has no known results.
[2022-07-29 17:07] LABS: Absolute Lymphocytes (CBC) 2.5 K/uL (0.7-4.9); Hematocrit 39.1 % (36.0-45.0); MCV 87.4 fL (80-100); MPV 9.2 fL (7.6-11.3); RBC Red Blood Cell Count 4.47 M/uL (3.86-4.86)
[2022-07-29 17:25] LABS: Potassium 3.7 mEq/L (3.5-5.1); Troponin High Sensitivity 9.8 pg/mL (<58.9)
--- NOTE | 2022-07-29 18:08 | RAD REPORT ---
EXAM DESCRIPTION: RAD - Chest Single View - 07/29/2022 5:52 pm CLINICAL HISTORY: CHEST PAIN COMPARISON: CT CHEST,ABD,PELVIS W/WO dated 05/19/2022 FINDINGS: Lines: None. Lungs: No evidence of edema or pneumonia. Pleural: No significant pleural effusions or pneumothorax. Cardiac: Within normal limits for portable technique . Mediastinum: Within normal limits. Bones: No acute fractures. Other: None IMPRESSION: No acute cardiopulmonary disease.
--- NOTE | 2022-07-29 18:17 | ER ---
Nurse's Notes [facility] Kary Name: Marietta Chambers Age: 56 yrs Sex: Female : 1965 Arrival Date: 07/29/2022 Time: 16:12 Bed 18 Private MD: Diagnosis: Chest pain, unspecified Presentation: 07/29 16:33 Chief complaint: EMS states: chest pain x30 min. 324mg of aspirin and 1mg of sublingual kc6 nitro given en route. Coronavirus screen: Vaccine status: Patient reports receiving the 2nd dose of the covid vaccine. At this time, the client does not indicate any symptoms associated with coronavirus-19. Ebola Screen: No symptoms or risks identified at this time. Initial Sepsis Screen: Does the patient meet any 2 criteria? No. Patient's initial sepsis screen is negative. Does the patient have a suspected source of infection? No. Patient's initial sepsis screen is negative. Risk Assessment: Do you want to hurt yourself or someone else? Patient reports no desire to harm self or others. Onset of symptoms was July 29, 2022. 16:33 Method Of Arrival: EMS: [facility] kc6 16:33 Acuity: ERASMO 3 kc6 Triage Assessment: 16:34 General: Appears in no apparent distress. comfortable, Behavior is calm, cooperative, kc6 appropriate for age. Pain: Complains of pain in chest Pain does not radiate. Pain currently is 1 out of 10 on a pain scale. Quality of pain is described as pressure, Pain began 30 min ago. Is continuous. EENT: No signs and/or symptoms were reported regarding the EENT system. Neuro: Peterson Agitation-Sedation Scale (RASS): 0 - Alert and Calm Level of Consciousness is awake, alert, obeys commands, Oriented to person, place, time, situation, Appropriate for age. Cardiovascular: Reports chest pain, Heart tones S1 S2 present Capillary refill < 3 seconds Rhythm is sinus rhythm. Respiratory: Airway is patent Trachea midline Respiratory effort is even, unlabored, Respiratory pattern is regular, symmetrical, Denies shortness of breath. GI: No signs and/or symptoms were reported involving the gastrointestinal system. : No signs and/or symptoms were reported regarding the genitourinary system. Derm: No signs and/or symptoms reported regarding the dermatologic system. Skin is intact, Skin is pink, warm \T\ dry. Musculoskeletal: No signs and/or symptoms reported regarding the musculoskeletal system. Circulation, motion, and sensation intact. Capillary refill < 3 seconds, Range of motion: intact in all extremities. 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 - Social history:: Smoking status: Patient denies any tobacco usage or history of. Screenin:38 [facility] ED Fall Risk Assessment (Adult) History of falling in the last 3 months, kc6 including since admission No falls in past 3 months (0 pts) Confusion or Disorientation No (0 pts) Intoxicated or Sedated No (0 pts) Impaired Gait No (0 pts) Mobility Assist Device Used No (0 pt) Altered Elimination No (0 pt) Score/Fall Risk Level 0 - 2 = Low Risk Oriented to surroundings, Maintained a safe environment, Educated pt \T\ family on fall prevention, incl call for assistance when getting out of bed, Assessed \T\ reinforced patient's understanding of fall precautions, Hourly rounding (assess needs \T\ fall precautionary measures) done. Abuse screen: Denies threats or abuse. Denies injuries from another. Nutritional screening: No deficits noted. Tuberculosis screening: No symptoms or risk factors identified. Assessment: 16:40 General: Appears in no apparent distress. uncomfortable, Behavior is calm, cooperative, eh3 appropriate for age. Pain: Complains of pain in chest. Pain: Pain does not radiate. Pain currently is 2 out of 10 on a pain scale. Pain: Quality of pain is described as pressure, Pain began 1 hour ago. Is continuous. Neuro: Level of Consciousness is awake, alert, obeys commands, Oriented to person, place, time, situation. Cardiovascular: Capillary refill < 3 seconds Patient's skin is warm and dry. Rhythm is sinus rhythm. Respiratory: Airway is patent Respiratory effort is even, unlabored, Respiratory pattern is regular, symmetrical. GI: Abdomen is round non-distended. : No signs and/or symptoms were reported regarding the genitourinary system. EENT: No signs and/or symptoms were reported regarding the EENT system. Derm: Skin is pink, warm \T\ dry. Musculoskeletal: Circulation, motion, and sensation intact. 17:00 Reassessment: Patient appears in no apparent distress at this time. Patient and/or eh3 family updated on plan of care and expected duration. Pain level reassessed. Patient is alert, oriented x 3, equal unlabored respirations, skin warm/dry/pink. 18:00 Reassessment: Patient appears in no apparent distress at this time. Patient and/or eh3 family updated on plan of care and expected duration. Pain level reassessed. Patient is alert, oriented x 3, equal unlabored respirations, skin warm/dry/pink. 19:00 Reassessment: Patient appears in no apparent distress at this time. Patient and/or eh3 family updated on plan of care and expected duration. Pain level reassessed. Patient is alert, oriented x 3, equal unlabored respirations, skin warm/dry/pink. Vital Signs: 16:33 BP 159 / 91; Pulse 81; Resp 21 S; Pulse Ox 100% on R/A; Weight 104.33 kg (R); Height 5 kc6 ft. 8 in. (R); Pain 1/10; 16:40 BP 148 / 80; Pulse 82; Resp 15; Pulse Ox 99% on R/A; eh3 17:00 BP 155 / 81; Pulse 78; Resp 18; Pulse Ox 100% on R/A; eh3 18:00 BP 157 / 82; Pulse 72; Resp 20; Pulse Ox 100% on R/A; eh3 19:00 BP 160 / 88; Pulse 76; Resp 20; Pulse Ox 100% on R/A; eh3 16:33 Body Mass Index 34.97 (104.33 kg, 172.72 cm) kc6 16:33 Pain Scale: Adult kc6 ED Course: 16:28 Patient arrived in ED. mm9 16:33 David Lester MD is Attending Physician. bs3 16:34 Kortney Alvarenga, CARL is Primary Nurse. eh3 16:34 Triage completed. kc6 16:34 Arm band placed on. kc6 16:37 Patient has correct armband on for positive identification. Bed in low position. Call kc6 light in reach. Side rails up X2. Client placed on continuous cardiac and pulse oximetry monitoring. NIBP monitoring applied. 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 16:37 Maintain EMS IV. Dressing intact. Good blood return noted. Site clean \T\ dry. Gauge \T\ jay 6 site: 20G L Wrist. Patient maintains SpO2 saturation greater than 95% on room air. 17:54 XRAY Chest (1 view) In Process Unspecified. EDMS 18:16 Deng Oropeza MD is Hospitalizing Provider. bs3 19:27 No provider procedures requiring assistance completed. Patient admitted, IV remains in eh3 place. Administered Medications: No medications were administered Medication: 19:27 VIS not applicable for this client. eh3 Outcome: 18:16 Decision to Hospitalize by Provider. bs3 19:26 Admitted to ER Hold. Please see [facility] for further documentation. 3 19:26 Condition: stable 19:26 Instructed on the need for admit. 20:35 Admitted to Tele accompanied by nurse, family with patient, via wheelchair, room 430, 3 Report called to Ayah 20:49 Patient left the ED. eh3 Signatures: Dispatcher [employer] EDAZ Kortney Alvarenga RN RN eh3 Jackie Lopez RN RN kc6 David Lester MD MD bs3 Lety Villatoro mm9
--- NOTE | 2022-07-29 18:17 | EDPHYS ---
Physician Documentation [facility] Name: Marietta Chambers Age: 56 yrs Sex: Female : 1965 Arrival Date: 07/29/2022 Time: 16:12 Bed 18 Private MD: ED Physician David Lester HPI: 07/29 16:34 This 56 yrs old Female presents to ER via Unassigned with complaints of Chest bs3 Pain > 30 y/o. 16:34 56-year-old female history of myocardial bridge, hypertension, questionable bs3 hyperlipidemia, 20% stenosis on cath from approx 3 years ago pw chest pain that started 30min ago, waxing and waning, described as an achy pressure currently a 1 out of 10 she did have some decreased sensation in her left fifth and fourth digits the symptoms started while standing she notes that she has been in graduation [place] all day standing for approximately 10 hours when the pain started she received nitro prior to arrival and 325 of aspirin prior to arrival she notes similar symptoms when they discovered her myocardial bridge several years ago. 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 - Social history:: Smoking status: Patient denies any tobacco usage or history of. ROS: 16:34 Constitutional: Negative for fever, chills bs3 16:34 All other systems are negative. Exam: 16:34 Constitutional: This is a well developed, well nourished patient who is awake, alert, bs3 and in no acute distress. Head/Face: Normocephalic, atraumatic. Eyes: Pupils equal round and reactive to light, extra-ocular motions intact. Lids and lashes normal. ENT: mmm, no posterior phyarngeal erythema Neck: Trachea midline, no thyromegaly, no neck stiffness Chest/axilla: Normal chest wall appearance and motion. Nontender with no deformity. No lesions are appreciated. Cardiovascular: Regular rate and rhythm with a normal S1 and S2. symmetric pulses in upper extremities Respiratory: Lungs have equal breath sounds bilaterally, clear to auscultation, no respiratory distress Abdomen/GI: Soft, non-tender, no rebound or guarding Neuro: Awake and alert, GCS 15, oriented to person, place, time, and situation. Cranial nerves II-XII grossly intact. Motor strength 5/5 in all extremities. Sensory grossly intact. Psych: Awake, alert, with orientation to person, place and time. Behavior, mood, and affect are within normal limits. Vital Signs: 16:33 BP 159 / 91; Pulse 81; Resp 21 S; Pulse Ox 100% on R/A; Weight 104.33 kg (R); Height 5 kc6 ft. 8 in. (R); Pain 1/10; 16:40 BP 148 / 80; Pulse 82; Resp 15; Pulse Ox 99% on R/A; eh3 17:00 BP 155 / 81; Pulse 78; Resp 18; Pulse Ox 100% on R/A; eh3 18:00 BP 157 / 82; Pulse 72; Resp 20; Pulse Ox 100% on R/A; eh3 19:00 BP 160 / 88; Pulse 76; Resp 20; Pulse Ox 100% on R/A; eh3 16:33 Body Mass Index 34.97 (104.33 kg, 172.72 cm) kc6 16:33 Pain Scale: Adult kc6 MDM: 16:33 Patient medically screened. 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 HEART score is 3 and if ECG abn then 4, considered dissection, but equal symmetric pulses, not ripping or tearing, no weakness. Data reviewed: vital signs, nurses notes. 18:14 ED course: EKG is normal sinus rhythm at 78 she has T wave inversions in 1 aVL V1 V2, bs3 QTc 462 as interpreted by myself given the abnormal EKG no prior she has a heart score of 4 discussed with patient given risk-benefit profile patient request admission for serial exams observation. ED course: Discussed with hospitalist who accepts admission and agrees with plan. 07/29 16:34 Order name: Basic Metabolic Panel; Complete Time: 17:28 3 07/29 16:34 Order name: CBC with Diff; Complete Time: 17:28 3 07/29 16:34 Order name: Troponin HS; Complete Time: 17:28 3 07/29 17:09 Order name: D-Dimer; Complete Time: 17:36 3 07/29 16:34 Order name: XRAY Chest (1 view); Complete Time: 18:10 3 07/29 16:34 Order name: EKG; Complete Time: 16:35 3 07/29 16:34 Order name: Cardiac monitoring; Complete Time: 17:06 3 07/29 16:34 Order name: EKG - Nurse/Tech; Complete Time: 17:06 3 07/29 16:34 Order name: IV Saline Lock; Complete Time: 17:06 3 07/29 16:34 Order name: Labs collected and sent; Complete Time: 17:06 3 07/29 16:34 Order name: O2 Per Protocol; Complete Time: 17:06 3 07/29 16:34 Order name: O2 Sat Monitoring; Complete Time: 17:06 bs3 Administered Medications: No medications were administered Disposition Summary: 07/29/22 18:16 Hospitalization Ordered Hospitalization Status: Observation bs3 Provider: Deng Oropeza bs3 Location: Telemetry/MedSurg (observation) bs3 Condition: Stable bs3 Problem: new bs3 Symptoms: have improved bs3 Bed/Room Type: Standard bs3 Room Assignment: 430(07/29/22 20:07) cg Diagnosis - Chest pain, unspecified bs3 Forms: - Medication Reconciliation Form bs3 - SBAR form bs3 Signatures: Dispatcher [employer] EDMS Tk Cabrera FNP-C INFANT ROOM TEACHER-Cla1 Nury Graham RN RN cg Jackie Lopez RN RN kc6 David Lester MD MD bs3 Corrections: (The following items were deleted from the chart) 20:07 18:16 bs3 cg
[2022-07-29 19:07] VITALS: BMI 34.9
[2022-07-29] MEDS ORDERED: ONDANSETRON 4 MG/2 ML VIAL IV PRN (19:07)
[2022-07-29] MEDS ORDERED: TIZANIDINE 4 MG TABLET PO PRN (19:07)
[2022-07-29] MEDS ORDERED: MORPHINE 2 MG/ML SYR IV PRN (19:07)
--- NOTE | 2022-07-29 19:11 | P.HP ---
Certification for Inpatient Patient admitted to: Observation With expected LOS: <2 Midnights Patient will require the following post-hospital care: None Practitioner: I am a practitioner with admitting privileges, knowledge of patient current condition, hospital course, and medical plan of care. Services: Services provided to patient in accordance with Admission requirements found in Title 42 Section 412.3 of the Code of Federal Regulations Patient History Date of Service: 07/29/22 Reason for admission: Chest pain History of Present Illness: 56-year-old female with history of hypertension, hyperlipidemia, myocardial bridge, colon cancer status postresection in April presents emergency department with chief complaint of chest pain. She reports that she was at a graduation standing for most of the day and under a lot of stress recently, she began to experience chest pressure radiating to the left arm just prior to her presentation to the emergency department. She was evaluated in the ER her initial high-sensitivity troponin was 9.8 D-dimer 322 chest x-ray unremarkable EKG without STEMI criteria. ED provider wishes to admit under observation for ACS rule out. Her last heart catheterization was 5 years ago showed myocardial bridge with approximately 20 to 30% stenosis in one of the vessels, has not had a stress test either since then. Allergies No Known Allergies Allergy (Unverified 08/30/11 08:17) - Past Medical/Surgical History -: HTN -: HLD -: Myocardial bridge -: Colon CA S/P resection 2022 -: Colon resection -: Hysterectomy Psychosocial/ Personal History: Pt works at the [employer], lives at home with family. - Family History Mother -: Heart disease Father -: Cancer - Social History Smoking Status: Never smoker Alcohol use: No CD- Drugs: No Caffeine use: Yes Place of Residence: Home Review of Systems 10-point ROS is otherwise unremarkable Cardiovascular: Chest Pain Physical Examination - Physical Exam General: Alert, In no apparent distress, Oriented x3 HEENT: Atraumatic, PERRLA, Mucous membr. moist/pink, EOMI, Sclerae nonicteric Neck: Supple, 2+ carotid pulse no bruit, No LAD, Without JVD or thyroid abnormality Respiratory: Clear to auscultation bilaterally, Normal air movement Cardiovascular: Regular rate/rhythm, Normal S1 S2 Capillary refill: <2 Seconds Gastrointestinal: Normal bowel sounds, No tenderness Musculoskeletal: No tenderness Integumentary: No rashes Neurological: Normal speech, Normal strength at 5/5 x4 extr, Normal tone, Normal affect Lymphatics: No axilla or inguinal lymphadenopathy - Studies Laboratory Data (last 24 hrs) 07/29/22 16:59: WBC 10.10, Hgb 13.0, Hct 39.1, Plt Count 301 07/29/22 16:59: Sodium 138, Potassium 3.7, BUN 21 H, Creatinine 0.76, Glucose 101 Assessment and Plan - Plan Assessment: Chest pain rule out ACS Hypertension Hyperlipidemia History of colon cancer status postresection Plan: Chest pain rule out ACS Trend troponins, monitor on telemetry, cardiology consult in place. Initial high-sensitivity troponin negative, D-dimer negative, last heart catheterization 5 years ago with myocardial bridge, 20-30% stenosis per patient/family. No recent stress test. Appreciate further input from cardiology. Continue aspirin, statin. Hypertension Hyperlipidemia Home medications have been continued History of colon cancer status postresection Had resection in April with clean margins, currently on surveillance. DVT PPX: Lovenox Code status: Full Discharge Plan: Home Plan to discharge in: 24 Hours - Advance Directives Does patient have a Living Will: No Does patient have a Durable POA for Healthcare: No - Code Status/Comfort Care Code Status Assessed: Yes (Full code) Critical Care: No Time Spent Managing Pts Care (In Minutes): 55
[2022-07-29] MEDS: ATORVASTATIN 80 MG TAB PO SCH (20:28)
[2022-07-29] MEDS ORDERED: ATORVASTATIN 20 MG TAB ONE (20:34)
[2022-07-30 04:33] LABS: Absolute Lymphocytes (CBC) 2.1 K/uL (0.7-4.9); Hematocrit 40.1 % (36.0-45.0); Lymphocytes % 25.7 % (15.3-44.8); MCV 87.8 fL (80-100); MPV 9.4 fL (7.6-11.3); RBC Red Blood Cell Count 4.57 M/uL (3.86-4.86)
[2022-07-30 04:53] LABS: Potassium 4.4 mEq/L (3.5-5.1); Thyroid Stimulating Hormone 1.84 uIU/mL (0.358-3.740); Troponin High Sensitivity 9.9 pg/mL (<58.9)
--- NOTE | 2022-07-30 07:36 | P.PN ---
Date of Service: 07/30/22 Subjective: Feeling much better today no chest pain since yesterday pm, +numbness in hand is gone reports high BP at time of onset headache this morning Patient states there is a possibility she may have missed some home medications yesterday morning (can't fully remember) ROS: 10 point ROS as noted above, otherwise negative Physical Exam: GEN: Alert, oriented, NAD HEENT: Normal conjunctiva, sclera anicteric CV: Regular rate and rhythm, no murmur, no edema Pulm: Nonlabored respirations on room air ABD: Soft, nontender, nondistended Neuro: Normal speech, normal affect vitals reviewed Problem List: Chest pain Myocardial bridge Hypertension Hyperlipidemia History of colon cancer status postresection Chest Pain last heart catheterization 5 years ago with myocardial bridge, 20-30% stenosis per patient/family. No recent stress test. CXR 07/29- negative Trend troponins - initial negative x3, D-dimer negative EKG with ST changes; no prior ekg in chart to compare monitor on telemetry continue aspirin/statin, nitro cardiology consulted stress test in AM Hypertension Hyperlipidemia Continue home medications History of colon cancer status postresection Had polyp resection in April with clean margins, currently on surveillance. VTE: Lovenox Code: Full Dispo: Home 24hrs
[2022-07-30] MEDS: LOSARTAN POTASSIUM 50 MG TABLET PO SCH (08:40)
[2022-07-30] MEDS: ENOXAPARIN 40 MG/0.4 ML SQ SCH (08:40)
[2022-07-30] MEDS: DILTIAZEM HCL 180 MG SR CAP PO SCH (08:40)
[2022-07-30] MEDS: ASPIRIN EC 81 MG TAB PO SCH (08:40)
[2022-07-30] MEDS ORDERED: ACETAMINOPHEN 500 MG TAB PO PRN (11:36)
--- NOTE | 2022-07-30 14:44 | EKG ---
Test Date: 2022-07-29 Test Time: 16:52:27 Medical Doctor: ROMA MEASUREMENT RESULTS: Intervals: Rate: 78 [place]: 176 QRSD: 96 QT: 406 QTc: 462 [place]: P: 52 [place]: 176 QRS: -52 T: 103 INTERPRETIVE STATEMENTS: Normal sinus rhythm Possible Left atrial enlargement Pulmonary disease pattern Left anterior fascicular block T wave abnormality, consider lateral ischemia Abnormal ECG Compared to ECG 03/31/1997 14:56:00 Left anterior fascicular block now present T-wave abnormality now present Possible ischemia now present Electronically Signed On 07-30-22 14:42:57 CDT by Thong Gomez
--- NOTE | 2022-07-30 15:06 | CON ---
Date of Consultation: 07/30/2022 Reason For Consultation: Chest pain. History Of Present Illness: A 56-year-old female with history of hypertension, dyslipidemia, colon c ancer, presented with chest pressure. 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 She called ambulance. Since arrival to the hospital, she has no further chest pain. She had a h eart catheterization apparently about 6 to 7 years ago and she was told that she has myocardial bridg e and mild coronary artery disease. Past Medical History: Hypertension, dyslipidemia, coronary artery disease, colon cancer. Medications: Refer to reconciliation sheet for detailed list. Allergies: INDOMETHACIN. Family History: No premature coronary artery disease or cancer. Social History: She does not smoke or drink. Does not use any drugs. Review of Systems: All systems reviewed and they were negative except what mentioned in HPI. Physical Examination: Vital Signs: Reviewed. Temperature is 98.6, pulse 71, breathing 16, blood pressure 169/91, saturati ng at 99% on room air. General: Pleasant middle-aged female, in no apparent distress. Head and Neck: Pupils are equal, reactive to light. Intact eye movements. No JVD. No cervical lym phadenopathy. Neck is supple. Thyroid is not enlarged. Lungs: Clear to auscultation bilaterally. No rhonchi, wheezing, or crackles. No accessory muscle u se. Heart: Regular rate and rhythm. No extra sounds. Abdomen: Soft, nontender. Bowel sounds positive. No organomegaly. No masses or hernia. No rigidi ty or rebound. Extremities: No edema, clubbing, or cyanosis. Intact pulses. Skin: No rash. Neurologic: Alert, awake, oriented x3. No acute focal deficits appreciated. Investigations: Cardiac enzymes x3 are negative. BUN 14, creatinine 0.69, and hemoglobin 13.6. Assessment And Recommendations: 1.Chest pain, known remote history of mild coronary artery disease. Cardiac enzymes are negative. The patient can be released from Cardiology standpoint. We will obtain an exercise nuclear stress te st and an echo as an outpatient this week. 2.Hypertension. Blood pressure is elevated. Continue losartan. Recommend to add low dose of hydro chlorothiazide 12.5 mg daily and titrate as needed. 3.Dyslipidemia. Recommend a statin. SR/MODL Voice ID: [id number] Report ID: [id number]
[2022-07-30] MEDS: ATORVASTATIN 80 MG TAB PO SCH (21:00)
--- NOTE | 2022-07-31 07:08 | P.PN ---
Date of Service: 07/31/22 Subjective: Feeling better this morning, no chest pain this morning no new / worsening problems stress test this morning ROS: 10 point ROS as noted above, otherwise negative Physical Exam: GEN: Alert, oriented, NAD HEENT: Normal conjunctiva, sclera anicteric CV: Regular rate and rhythm, no murmur, no edema Pulm: Nonlabored respirations on room air ABD: Soft, nontender, nondistended Neuro: Normal speech, normal affect vitals reviewed Problem List: Chest pain Myocardial bridge Hypertension Hyperlipidemia History of colon cancer status postresection Chest Pain last heart catheterization 5 years ago with myocardial bridge, 20-30% stenosis per patient/family. No recent stress test. 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 VTE: Lovenox Code: Full Dispo: Home Sunday, after cath
[2022-07-31] MEDS ORDERED: REGADENOSON 0.4 MG/5 ML SYR IV ONE (07:17)
[2022-07-31] MEDS: LOSARTAN POTASSIUM 50 MG TABLET PO SCH (09:22)
[2022-07-31] MEDS: ASPIRIN EC 81 MG TAB PO SCH (09:23)
[2022-07-31] MEDS: ENOXAPARIN 40 MG/0.4 ML SQ SCH (09:23)
[2022-07-31] MEDS: DILTIAZEM HCL 180 MG SR CAP PO SCH (09:23)
--- NOTE | 2022-07-31 12:43 | RAD REPORT ---
EXAM DESCRIPTION: NM - Rest Stress Cardiac Imaging - 07/31/2022 9:22 am CLINICAL HISTORY: unstable agina Chest pain. COMPARISON: No comparisons TECHNIQUE: The patient was administered approximately 10mCi of Tc 99m Sestamibi prior to resting SPE CT imaging of the heart. The patient was then administered approximately 30 mCi of Tc 99m Sestamibi f ollowing exercise or pharmacologic stress. Multiplanar SPECT images were reviewed. FINDINGS: There is evidence of mild stress-induced ischemia involving the lateral wall. No fixed def ect is seen to suggest hibernating myocardium or scarred myocardium. The end diastolic volume is 118 ml, the end systolic volume is 43 ml, and the ejection fraction is 64 %. IMPRESSION: There is evidence of moderate size mild stress-induced ischemia involving the lateral wa ll.
--- NOTE | 2022-07-31 14:00 | TREADPHA ---
DX: UNSTABLE ANGINA Date of Study: 07/31/2022 Ht: 5' 8 " Wt: 230 lb 0 oz Consulting Physician: KLAUS MEDICATIONS: COZAAR, CYMBALTA, LIPITOR, CARDIZEM, ASPIRIN, PEPCID HISTORY: 56 YEAR OLD WITH COMPLAINTS OF CHEST PAIN. HISTORY OF MYOCARDIAL BRIDGE, HYPERTENSION, DYSLIPIDEMIA, CORONARY ARTERY DISEASE, COLON CANCER, DRINKS OCCASIONALLY. DENIES SMOKING, DRUG USE OR PREVIOUS HEART SURGERIES, HIGH CHOLESTEROL. PHYSICIAL EXAMINATION: RESTING B.P.: 134/87 RESTING H.R.: 75 RESTING EKG: SINUS RHYTHM, LEFT ANTERIOR HEART BLOCK, OLD ANTEROSEPTAL MYOCARDIAL INFARCTION. PROTOCOL: LEXISCAN EXERCISE TIME: 3:30 B.P. AT PEAK STRESS: 160/84 IMPRESSION: LEXISCAN STRESS TEST PERFORMED. LEXISCAN INJECTED. CARDIOLITE GIVEN PER PROTOCOL. SEE NUCLEAR MEDICINE REPORT. NO PREMATURE ATRIAL COMPLEXES. NO SUPARVENTRICULAR TACHYCARDIA. NO VENTRICULAR TACHYCARDIA. PATIENT DENIES CHEST PAIN OR SHORTNESS OF BREATH. OCCASIONAL PREMATURE VENTRICULAR COMPLEXES NOTED.
[2022-07-31] MEDS: ATORVASTATIN 80 MG TAB PO SCH (21:35)
--- NOTE | 2022-07-31 23:08 | PN ---
Date of Progress Note: 07/31/2022 Ms. Chambers had come in with chest pain, was seen by Dr. Gomez. She is a patient of Dr. Duque. H as a history of hypertension and colon cancer. The colon cancer has been acute. Has had a catheteri zation 5 years ago and was told that she has a myocardial bridge. Family history of pacemaker treatm ent for her mom. Stress test today showed lateral ischemia. Case was discussed with Dr. Oropeza and t he patient. We will plan a catheterization before she goes home. No change in therapy for now. LAVONNE/ANGIE Voice ID: [id number] Report ID: [id number]
[2022-08-01 06:42] LABS: Potassium 4.6 mEq/L (3.5-5.1)
[2022-08-01] MEDS: DILTIAZEM HCL 180 MG SR CAP PO SCH (08:35)
[2022-08-01] MEDS: LOSARTAN POTASSIUM 50 MG TABLET PO SCH (08:35)
[2022-08-01] MEDS: ASPIRIN EC 81 MG TAB PO SCH (08:35)
[2022-08-01] MEDS: ENOXAPARIN 40 MG/0.4 ML SQ SCH (08:35)
[2022-08-01] MEDS ORDERED: NA CHLORIDE 0.9% 500 ML ONE (13:47)
[2022-08-01] MEDS ORDERED: Phenylephrine HCl 10 MG/ML 1 ML VIAL ONE (14:06)
[2022-08-01] MEDS ORDERED: HEPARIN 5000 UNIT/ML 1 ML VIAL ONE (14:17)
[2022-08-01] MEDS ORDERED: FENTANYL CITR 100 MCG/2 ML ONE (14:17)
[2022-08-01] MEDS ORDERED: MIDAZOLAM HCL 2 MG/2 ML INJ ONE (14:17)
[2022-08-01] MEDS ORDERED: VERAPAMIL HCL 10 MG/4 ML VIAL IV ONE (14:17)
[2022-08-01] MEDS ORDERED: CLOPIDOGREL 75 MG TABLET ONE (14:18)
[2022-08-01] MEDS ORDERED: ASPIRIN 325 MG TAB ONE (14:18)
[2022-08-01] MEDS ORDERED: HEPARIN 10,000 UNIT/10 ML VIAL IV ONE (14:18)
[2022-08-01] MEDS ORDERED: TICAGRELOR 90 MG TABLET PO ONE (14:18)
--- NOTE | 2022-08-01 15:05 | OP ---
Date of Procedure: 08/01/2022 Surgeon: RYAN MILES Procedures Performed: 1.Selective coronary angiogram. 2.Left heart catheterization. Indication: Chest pain with abnormal stress test. Access: Right radial artery 6-Portuguese closed with TR band. Complications: None. Bleeding: Less than 10 mL. Anesthesia: Total sedation time was 30 minutes, used fentanyl and Versed. Description Of Procedure: After risks, benefits, alternatives were explained, the patient agreed to procedure and signed informed consent. The patient was brought into cardiac catheterization laborato , prepped and draped in the usual sterile fashion. Then, I accessed right radial artery using pedi atric micropuncture kit, placed 6-Portuguese Slender sheath and took 5-Portuguese [place] 4.0 catheter into the aortic root, engaged left main and then right coronary artery, took standard views and then over the J-wire, catheter was pushed into the LV, measured the LVEDP and pullback did not record any gradient and removed the catheter and sheath, placed TR band with good hemostasis. Findings: 1.Left main; very large and normal. 2.LAD; very large vessel with mid to distal may be 20% stenosis or the vessel just tapers down. Jennifer gonal branches are all normal. 3.Left circumflex; very large vessel, codominant, and normal. 4.RCA; very large and dominant and normal. 5.Normal LVEDP between 5 and 10 mmHg. Conclusion: 1.No significant coronary artery disease. 2.Normal LVEDP. Recommendation: Medical management. The patient can be released from Cardiology standpoint. SR/MODL Voice ID: [id number] Report ID: [id number]
--- NOTE | 2022-08-01 15:20 | P.DS ---
Admission Date: 07/29/22 Discharge Date: 08/01/22 Disposition: ROUTINE DISCHARGE Discharge Condition: FAIR Reason for Admission: Chest pain Brief History of Present Illness: 56-year-old female with history of hypertension, hyperlipidemia, myocardial bridge, colon cancer status postresection in April presented to the emergency department with chief complaint of chest pain. She reports that she was at a graduation standing for most of the day and under a lot of stress recently. She began to experience chest pressure radiating to the left arm just prior to her presentation to the emergency department. Her initial high-sensitivity troponin was 9.8 D-dimer 322 chest x-ray unremarkable EKG without STEMI criteria in the ED. Her last heart catheterization was 5 years ago showed myocardial bridge with approximately 20 to 30% stenosis in one of the vessels. Patient placed on observation for ACS rule out. Hospital Course: Diagnosis Chest pain Myocardial bridge Hypertension Hyperlipidemia History of colon cancer status postresection Chest Pain last heart catheterization 5 years ago with myocardial bridge, 20-30% stenosis per patient/family. CXR 07/29- negative Troponin - initial negative x3, D-dimer negative EKG with nonspecific ST changes, no STEMI criteria. Patient treated with aspirin, statin and nitro cardiology consulted stress test 07/31 -moderate size mild stress-induced ischemia involving the lateral wall Cardiac catheterization done which showed no significant coronary artery disease, no percutaneous intervention. No chest pain during the hospital stay. Patient deemed stable for discharge per cardiology. Hypertension Hyperlipidemia Continued home medications History of colon cancer status postresection Had polyp resection in April with clean margins, currently under surveillance. Vital Signs/Physical Exam: Temp Pulse Resp BP Pulse Ox 97.6 F 84 17 114/66 93 08/01/22 12:08/01/22 12:08/01/22 12:08/01/22 12:08/01/22 12:00 General: Alert, In no apparent distress, Oriented x3 HEENT: Mucous membr. moist/pink Neck: Supple, JVD not distended Respiratory: Clear to auscultation bilaterally, Normal air movement Cardiovascular: No edema, Regular rate/rhythm, Normal S1 S2, No murmurs Capillary refill: <2 Seconds Gastrointestinal: Normal bowel sounds, Soft and benign, Non-distended, No tenderness Musculoskeletal: No swelling, No erythema Integumentary: No rashes, No cyanosis Neurological: Normal strength at 5/5 x4 extr Laboratory Data at Discharge: WBC 8.30 thou/uL (4.3-10.9) 07/30/22 03:36 Hgb 13.6 g/dL (12.0-15.0) 07/30/22 03:36 Hct 40.1 % (36.0-45.0) 07/30/22 03:36 Plt Count 292 thou/uL (152-406) 07/30/22 03:36 Sodium 138 mEq/L (136-145) 08/01/22 06:11 Potassium 4.6 mEq/L (3.5-5.1) 08/01/22 06:11 BUN 16 mg/dL (7-18) 08/01/22 06:11 Creatinine 0.75 mg/dL (0.55-1.02) 08/01/22 06:11 Glucose 113 mg/dL (74-106) H 08/01/22 06:11 Triglycerides 141 mg/dL (<150) 07/30/22 03:36 Cholesterol 214 mg/dL (<200) H 07/30/22 03:36 HDL Cholesterol 66 mg/dL (40-60) H 07/30/22 03:36 Cholesterol/HDL Ratio 3.24 07/30/22 03:36 Home Medications: Aspirin [Aspirin EC] 1 tab PO DAILY 07/29/22 Atorvastatin Calcium [Lipitor] 1 tab PO BEDTIME 07/29/22 Diltiazem HCl [Cardizem Cd] 1 tab PO DAILY 07/29/22 Duloxetine HCl [Cymbalta] 1 cap PO DAILY 07/29/22 Famotidine [Pepcid*] 1 tab PO DAILY 07/29/22 Losartan Potassium [Cozaar] 1 tab PO DAILY 07/29/22 Followup: Unknown,U [Primary Care Provider] - Time spent managing pt's care (in minutes): 28
[2022-08-01 15:36] VITALS: O2SAT 96
[2022-08-01 16:51] VITALS: BP 137/65; TEMP 97.9
--- NOTE | 2022-08-01 17:59 | PN ---
Date of Progress Note: 08/01/2022 Ms. Chambers had come in with atypical chest pain, history of myocardial bridge at one point, multiple cardiac risk factors. Stress test was positive . Today, she underwent a left heart rani terization and was found to have no significant coronary artery disease, no myocardial bridging. Dion vizcarra was discussed with Dr. Gao and Dr. Gomez. She will go home after the procedure today in 2 hour s. She will come back and see us in the office in the next 2 weeks. No change in her medical therap y. NB/MODL Voice ID: [id number] Report ID: [id number]
== END 2022-08-01 18:35 | disposition home or self-care (01) ==
LOC: ER 16:12 → ERHOLD 18:22 → 4TH 20:21
PROVIDERS: ADMIT Hospitalist; ATTEND Internal Medicine
DX: R07.9 Chest pain, unspecified (principal); I10 Essential (primary) hypertension; E78.5 Hyperlipidemia, unspecified; Q24.5 Malformation of coronary vessels; I25.10 Atherosclerotic heart disease of native coronary artery without angina pectoris; I44.4 Left anterior fascicular block; I99.8 Other disorder of circulatory system; Z79.899 Other long term (current) drug therapy; Z88.8 Allergy status to other drugs, medicaments and biological substances; Z90.49 Acquired absence of other specified parts of digestive tract; Z85.038 Personal history of other malignant neoplasm of large intestine; Z82.49 Family history of ischemic heart disease and other diseases of the circulatory system; Z80.9 Family history of malignant neoplasm, unspecified
CPT/HCPCS: 93005; 93017; 85025 ×2; 80048 ×3; 36415 ×2; 80061; 85379; 84443; 84484 ×3; 84439; 71045; 93458; 76937; 78452; 99285; C1893; Q9966; J1644; J2785; J2370; J1650 ×3; J2250; J3010; G0378 ×8; J7040; A9500

== ENCOUNTER 2024-02-24 12:30 | Emergency (ER) | payer BC ==
[2024-02-24] MEDS ORDERED: NA CHLORIDE 0.9% 1,000 ML ONE (15:18)
[2024-02-24 15:46] LABS: Absolute Basophils 0.1 K/uL (0-0.5); Absolute Eosinophils 0.3 K/uL (0-0.5); Absolute Lymphocytes (CBC) 2.9 K/uL (0.7-4.9); Absolute Monocytes 0.6 K/uL (0.1-1.3); Basophils % 0.6 % (0-1.3); Eosinophils % 3.4 % (0-4.4); Hematocrit 43.2 % (36.0-45.0); Lymphocytes % 28.8 % (15.3-44.8); MCH 28.8 pg (27.0-35.0); MCHC 32.4 g/dL (32.0-36.0); MCV 88.9 fL (80-100); MPV 9.7 fL (7.6-11.3); Monocytes % 6.5 % (3.3-12.3); Neutrophils % 60.7 % (41.7-73.7); Platelets 317 thou/uL (152-406); RBC Red Blood Cell Count 4.86 M/uL (3.86-4.86); Red Cell Distribution Width 14.6 % (12.1-15.2)
[2024-02-24 15:55] LABS: Albumin 3.9 g/dL (3.4-5.0); Anion Gap 10.4 mEq/L (5.0-15.0); Bilirubin Total 0.7 mg/dL (0.2-1.0); Potassium 3.4 mEq/L (3.5-5.1); Protein, Total 7.9 g/dL (6.4-8.2)
[2024-02-24] MEDS ORDERED: ONDANSETRON 4 MG/2 ML VIAL ONE (16:22)
[2024-02-24] MEDS ORDERED: HYDROMORPHONE HCL 1 MG/ML INJ ONE (16:22)
[2024-02-24 16:26] LABS: Specific Gravity 1.005 (1.005-1.030); Urine Bilirubin NEGATIVE (Negative); Urine Blood Negative (Negative); Urine Clarity Clear (Clear); Urine Color Colorless (Yellow); Urine Glucose NEGATIVE (Negative); Urine Ketones NEGATIVE (Negative); Urine Microscopic Reflex YN NO UMIC; Urine Nitrite NEGATIVE (Negative); Urine Protein NEGATIVE (Negative); Urine Urobilinogen Normal (Normal); Urine pH 6.5 (5.0-7.0)
[2024-02-24 16:27] LABS: Specific Gravity 1.005 (1.005-1.030)
--- NOTE | 2024-02-24 17:17 | RAD REPORT ---
EXAMINATION: CT ABDOMEN AND PELVIS WITH CONTRAST CLINICAL INDICATION: Female, 58 years old.ABD PAIN TECHNIQUE: CT abdomen and pelvis was performed, after the administration of IV contrast, [facility] Axial, sagittal and coronal reconstructions were obtained. One or more of the following dose reduction techniques were used: Automated exposure control, adjustment of the mA and/o r kV according to patient size, and/or iterative reconstruction. Unless otherwise specified, incidental findings do not require dedicated imaging follow-up. [id number]. COMPARISON: No prior exam. FINDINGS: LOWER CHEST: The visualized lung bases are clear. LIVER: Normal in size and contour. No focal lesion. Hepatic steatosis. GALLBLADDER/BILE DUCT: No biliary ductal dilatation.? PANCREAS: No significant abnormality. SPLEEN: Normal size. No focal lesion. ADRENALS: Normal; no mass. KIDNEYS AND URETERS: Punctate stone lower pole right kidney. No hydronephrosis. No ureteral calculi. GASTROINTESTINAL TRACT: Stomach is non-dilated. Small bowel has normal course and caliber. No colonic wall thickening or pericolonic inflammatory changes. Mild formed stool in the ascending and transverse colon. PERITONEUM: No ascites. LYMPH NODES: No lymphadenopathy. ABDOMINAL AORTA AND OTHER VESSELS: Normal caliber aorta and IVC. URINARY BLADDER: Normal contour. REPRODUCTIVE ORGANS: No pathologic process. hysterectomy. MUSCULOSKELETAL: No acute or suspicious osseous abnormality. Multilevel degenerative changes are pres ent in the spine. ADDITIONAL FINDINGS: None. IMPRESSION: No acute or significant abnormalities seen in the abdomen or pelvis.
--- NOTE | 2024-02-24 17:22 | ER ---
Nurse's Notes [facility] Name: Marietta Chambers Age: 58 yrs Sex: Female : 1965 Arrival Date: 02/24/2024 Time: 12:30 Bed 12 Private MD: Diagnosis: Abdominal pain Presentation: 02/23 13:27 Chief complaint: Patient states: "I had slight constipation last week and I had slight aa5 diarrhea and today I have abdominal pain and explosive diarrhea". Pt reports left sided abd pain and rectal pain. Coronavirus screen: diarrhea. Ebola Screen: Patient denies travel to an Ebola-affected area in the 21 days before illness onset. Initial Sepsis Screen: Does the patient meet any 2 criteria? No. Patient's initial sepsis screen is negative. Does the patient have a suspected source of infection? No. Patient's initial sepsis screen is negative. Risk Assessment: Do you want to hurt yourself or someone else? Patient reports no desire to harm self or others. Onset of symptoms was February 2024. 13:27 Acuity: ERASMO 3 aa5 13:27 Method Of Arrival: Ambulatory aa5 Historical: - Allergies: 13:29 Indocin; aa5 - PMHx: 13:29 C4-C8 INJURY; colon cancer; Hypertension; myocardial bridge; melanoma (Unknown); aa5 - PSHx: 13:29 hysterectomy; Tonsillectomy; aa5 - Immunization history:: Adult Immunizations unknown. - Infectious Disease History:: Denies. - Social history:: Smoking status: Patient denies any tobacco usage or history of. Screenin:30 [facility] ED Fall Risk Assessment (Adult) History of falling in the last 3 months, kc6 including since admission No falls in past 3 months (0 pts) Confusion or Disorientation No (0 pts) Intoxicated or Sedated No (0 pts) Impaired Gait No (0 pts) Mobility Assist Device Used No (0 pt) Altered Elimination No (0 pt) Score/Fall Risk Level 0 - 2 = Low Risk Oriented to surroundings, Maintained a safe environment. Abuse screen: Denies threats or abuse. Denies injuries from another. Nutritional screening: No deficits noted. Tuberculosis screening: No symptoms or risk factors identified. Assessment: 13:30 General: Appears in no apparent distress. comfortable, well groomed, well developed, kc6 Behavior is calm, cooperative, appropriate for age. Pain: Complains of pain in buttocks and abdomen. Neuro: Level of Consciousness is awake, alert, obeys commands, Oriented to person, place, time, situation, Appropriate for age. Cardiovascular: Capillary refill < 3 seconds. Respiratory: Airway is patent Trachea midline Respiratory effort is even, unlabored, Respiratory pattern is regular, symmetrical. GI: Abdomen is round non-distended, Bowel sounds present X 4 quads. Abd is soft X 4 quads Reports constipation, diarrhea. : No signs and/or symptoms were reported regarding the genitourinary system. EENT: No signs and/or symptoms were reported regarding the EENT system. Derm: No signs and/or symptoms reported regarding the dermatologic system. Skin is intact, is healthy with good turgor, Skin is pink, warm \\T\\ dry. Musculoskeletal: No signs and/or symptoms reported regarding the musculoskeletal system. Circulation, motion, and sensation intact. Capillary refill < 3 seconds, Range of motion: intact in all extremities. 14:30 Reassessment: Patient appears in no apparent distress at this time. No changes from kc6 previously documented assessment. Patient and/or family updated on plan of care and expected duration. Pain level reassessed. Patient is alert, oriented x 3, equal unlabored respirations, skin warm/dry/pink. 15:30 Reassessment: Patient appears in no apparent distress at this time. No changes from kc6 previously documented assessment. Patient and/or family updated on plan of care and expected duration. Pain level reassessed. Patient is alert, oriented x 3, equal unlabored respirations, skin warm/dry/pink. 16:30 Reassessment: Patient appears in no apparent distress at this time. No changes from kc6 previously documented assessment. Patient and/or family updated on plan of care and expected duration. Pain level reassessed. Patient is alert, oriented x 3, equal unlabored respirations, skin warm/dry/pink. 17:30 Reassessment: Patient appears in no apparent distress at this time. No changes from kc6 previously documented assessment. Patient and/or family updated on plan of care and expected duration. Pain level reassessed. Patient is alert, oriented x 3, equal unlabored respirations, skin warm/dry/pink. Vital Signs: 13:27 BP 156 / 90; Pulse 67; Resp 16 S; Temp 98.3(O); Pulse Ox 100% on R/A; Weight 111.13 kg aa5 (R); Height 5 ft. 8 in. (R); 17:46 BP 132 / 75; Pulse 60; Resp 17 S; Temp 97.7(O); Pulse Ox 97% on R/A; kc6 13:27 Body Mass Index 37.25 (111.13 kg, 172.72 cm) aa5 ED Course: 12:33 Patient arrived in ED. ra3 13:02 Gerda Escobar MD is Attending Physician. sp3 13:27 Arm band placed on. aa5 13:29 Triage completed. aa5 15:29 Initial lab(s) drawn, by me, sent to lab. Inserted saline lock: 20 gauge in right mb4 antecubital area, using aseptic technique. Blood collected. Flushed with 10 mL NS. 15:30 CBC with Diff Sent. mb4 15:30 CMP Sent. mb4 15:30 Lipase Sent. mb4 16:12 Jackie Lopez, RN is Primary Nurse. kc6 16:17 Bed in low position. Call light in reach. mb4 17:08 CT Abd/Pelvis - IV Contrast Only In Process Unspecified. EDMS 17:48 No provider procedures requiring assistance completed. IV discontinued, intact, kc6 bleeding controlled, No redness/swelling at site. Pressure dressing applied. Administered Medications: 15:30 Drug: NS 0.9% IV 1000 ml IV at 1 bolus Per protocol; to be given as a bolus over 60 hb minutes Route: IV; Rate: 1 bolus; Site: right antecubital; 17:41 Follow up: Response: No adverse reaction; IV Status: Completed infusion; IV Intake: kc6 1000ml 16:28 Drug: HYDROmorphone IVP 1 mg IVP once Route: IVP; Site: right antecubital; kc6 17:40 Follow up: Response: No adverse reaction; Pain is decreased; RASS: Alert and Calm (0) kc6 16:29 Drug: Ondansetron IVP 4 mg IVP once; over 2 minutes Route: IVP; Site: right antecubital;kc6 17:40 Follow up: Response: No adverse reaction kc Medication: 17:49 VIS not applicable for this client. kc6 Intake: 17:41 IV: 1000ml; Total: 1000ml. kc6 Outcome: 17:21 Discharge ordered by sp3 17:48 Discharged to home ambulatory, with family, kc6 17:48 Condition: improved 17:48 Discharge instructions given to patient, Instructed on discharge instructions, follow up and referral plans. no drinking with medication, no driving heavy equipment, medication usage, Demonstrated understanding of instructions, follow-up care, medications, Prescriptions given X 2, 17:49 Patient left the ED. kc6 Signatures: Dispatcher [employer] EDMS Betzaida Mcgill RN RN aa5 Dulce Mills RN RN Belkis Mills mb4 Gerda Escobar MD MD sp3 Jackie Lopez RN RN kc6 Felicity Jay ra3
--- NOTE | 2024-02-24 17:22 | EDPHYS ---
Physician Documentation [facility] Name: Marietta Chambers Age: 58 yrs Sex: Female : 1965 Arrival Date: 02/24/2024 Time: 12:30 Bed 12 Private MD: ED Physician Gerda Escobar HPI: 02/23 16:49 This 58 yrs old Female presents to ER via Ambulatory with complaints of Abdominal Pain. sp3 16:49 58-year-old female with history of colon cancer with mass resection not requiring sp3 colectomy, diverticulosis, hypertension among others now presents to the ED with chief complaint abdominal pain sharp in nature diffuse with particularly increase in left side. She also states she has had bad cramping with diarrhea. No emesis, fever, headache, chest pain, shortness of breath, back pain, rash, bleeding anywhere else, syncope, known sick contacts, travel history, or any other signs or symptoms on ROS at this time.. Historical: - Allergies: 13:29 Indocin; aa5 - PMHx: 13:29 C4-C8 INJURY; colon cancer; Hypertension; myocardial bridge; melanoma (Unknown); aa5 - PSHx: 13:29 hysterectomy; Tonsillectomy; aa5 - Immunization history:: Adult Immunizations unknown. - Infectious Disease History:: Denies. - Social history:: Smoking status: Patient denies any tobacco usage or history of. ROS: 16:50 Constitutional: Negative for fever, chills, and weight loss, Eyes: Negative for injury, sp3 pain, redness, and discharge, ENT: Negative for injury, pain, and discharge, Neck: Negative for injury, pain, and swelling, Cardiovascular: Negative for chest pain, palpitations, and edema, Respiratory: Negative for shortness of breath, cough, wheezing, and pleuritic chest pain, Back: Negative for injury and pain, MS/Extremity: Negative for injury and deformity, Skin: Negative for injury, rash, and discoloration, Neuro: Negative for headache, weakness, numbness, tingling, and seizure, Psych: Negative for depression, anxiety, suicide ideation, homicidal ideation, and hallucinations, Allergy/Immunology: Negative for hives, rash, and allergies, Endocrine: Negative for neck swelling, polydipsia, polyuria, polyphagia, and marked weight changes, Hematologic/Lymphatic: Negative for swollen nodes, abnormal bleeding, and unusual bruising, 16:50 All other systems are negative, Exam: 16:51 Constitutional: This is a well developed, well nourished patient who is awake, alert, sp3 and in no acute distress. Head/Face: Normocephalic, atraumatic. Eyes: Pupils equal round and reactive to light, extra-ocular motions intact. Lids and lashes normal. Conjunctiva and sclera are non-icteric and not injected. Cornea within normal limits. Periorbital areas with no swelling, redness, or edema. Neck: Trachea midline, no thyromegaly or masses palpated, and no cervical lymphadenopathy. Supple, full range of motion without nuchal rigidity, or vertebral point tenderness. No Meningismus. Chest/axilla: Normal chest wall appearance and motion. Nontender with no deformity. No lesions are appreciated. Cardiovascular: Regular rate and rhythm with a normal S1 and S2. No gallops, murmurs, or rubs. Normal PMI, no JVD. No pulse deficits. Respiratory: Lungs have equal breath sounds bilaterally, clear to auscultation and percussion. No rales, rhonchi or wheezes noted. No increased work of breathing, no retractions or nasal flaring. Back: No spinal tenderness. No costovertebral tenderness. Full range of motion. Skin: Warm, dry with normal turgor. Normal color with no rashes, no lesions, and no evidence of cellulitis. MS/ Extremity: Pulses equal, no cyanosis. Neurovascular intact. Full, normal range of motion. Neuro: Awake and alert, GCS 15, oriented to person, place, time, and situation. Cranial nerves II-XII grossly intact. Motor strength 5/5 in all extremities. Sensory grossly intact. Cerebellar exam normal. Normal gait. Psych: Awake, alert, with orientation to person, place and time. Behavior, mood, and affect are within normal limits. 16:51 Abdomen/GI: Diffuse pain to palpation without peritoneal signs, rebound or guarding. Left lower quadrant particularly painful., Vital Signs: 13:27 BP 156 / 90; Pulse 67; Resp 16 S; Temp 98.3(O); Pulse Ox 100% on R/A; Weight 111.13 kg aa5 (R); Height 5 ft. 8 in. (R); 17:46 BP 132 / 75; Pulse 60; Resp 17 S; Temp 97.7(O); Pulse Ox 97% on R/A; kc6 13:27 Body Mass Index 37.25 (111.13 kg, 172.72 cm) aa5 MDM: 13:29 Medical Screening Exam initiated sp3 16:52 Data reviewed: vital signs, nurses notes, lab test result(s), radiologic studies. ED sp3 course: 58-year-old female with abdominal pain with history of colon cancer diverticulosis. Differential diagnosis includes diverticulitis, colitis, cancer complication, constipation, functional abdominal pain, obstruction, ileus, among others. Workup will include CT scan of the abdomen pelvis with IV contrast, general labs, UA and general supportive care. Dilaudid and Zofran and IV fluids as needed. Disposition pending workup and patient course.. 17:21 ED course: CT scan negative for any acute findings. All labs are within normal limits. sp3 At this time no distinct etiology for her symptoms can be found. We will reassure patient and have her follow-up with her PCP.. 02/23 13:55 Order name: CBC with Diff; Complete Time: 16:11 sp3 02/23 13:55 Order name: CMP; Complete Time: 16:11 sp3 02/23 13:55 Order name: Lipase; Complete Time: 16:11 sp3 02/23 13:55 Order name: Test, Urine; Complete Time: 16:53 sp3 02/23 13:55 Order name: Urinalysis w/ reflexes; Complete Time: 16:53 sp3 02/23 16:09 Order name: CT Abd/Pelvis - IV Contrast Only; Complete Time: 17:19 sp3 02/23 13:55 Order name: IV Saline Lock; Complete Time: 15:30 sp3 02/23 13:55 Order name: Labs collected and sent; Complete Time: 15:30 sp3 Administered Medications: 15:30 Drug: NS 0.9% IV 1000 ml IV at 1 bolus Per protocol; to be given as a bolus over 60 hb minutes Route: IV; Rate: 1 bolus; Site: right antecubital; 17:41 Follow up: Response: No adverse reaction; IV Status: Completed infusion; IV Intake: kc6 1000ml 16:28 Drug: HYDROmorphone IVP 1 mg IVP once Route: IVP; Site: right antecubital; kc6 17:40 Follow up: Response: No adverse reaction; Pain is decreased; RASS: Alert and Calm (0) kc6 16:29 Drug: Ondansetron IVP 4 mg IVP once; over 2 minutes Route: IVP; Site: right antecubital;kc6 17:40 Follow up: Response: No adverse reaction kc6 Disposition Summary: 02/24/24 17:21 Discharge Ordered Notes: Location: Home sp3 Condition: Stable sp3 Diagnosis - Abdominal pain sp3 Followup: sp3 - With: Private Physician - When: Upon discharge from the Emergency Department - Reason: Continuance of care Discharge Instructions: - Discharge Summary Sheet sp3 - Abdominal Pain, Adult sp3 Forms: - Medication Reconciliation Form sp3 - Antibiotic Education sp3 - Prescription Opioid Use sp3 - Patient Portal Instructions sp3 - Leadership Thank You Letter sp3 Prescriptions: - Tramadol 50 mg Oral Tablet - take 1 tablet ORAL route every 8 hours as needed; 12 tablet; Refills: 0, sp3 Product Selection Permitted - dicyclomine 10 mg Oral capsule - take 2 capsules ORAL route 3 times per day; 20 capsule; Refills: 0, Product sp3 Selection Permitted Signatures: Dispatcher [employer] Betzaida Hastings RN RN aa5 Dulce Mills RN RN Gerda Vela MD MD sp3 Jackie Lopez RN RN kc6
[2024-02-24 20:48] VITALS: BP 132/75; TEMP 97.7; O2SAT 97
== END 2024-02-24 17:49 | disposition home or self-care (01) ==
LOC: ER 12:30
DX: R10.32 Left lower quadrant pain (principal); Z85.038 Personal history of other malignant neoplasm of large intestine; I10 Essential (primary) hypertension
CPT/HCPCS: 96361; 85025; 36415; 81025; 81003; 83690; 80053; 74177; 96375; 96374; 99284; Q9967; J1171; J2405; J7030